=== PATIENT | male | born 1975 | race Caucasian/White ===

== ENCOUNTER 2017-04-26 22:51 | Inpatient (IN) | payer MEDICAID, OTHER ==
[~2017-04-26] VITALS: Ht 172.7 cm; Wt 74.7 kg
[~2017-04-26 22:51] MED LIST: BUSP15TA PO; CHLO10 PO; IBUP600T26 PO; LORTA5 PO; OXCA300 PO; PROP20TA3 PO; QUET100 PO; ROPI.5 PO
[2017-04-26 23:00] VITALS: BP 138/87; PULSE 99; RESP 16; TEMP 98.8; O2SAT 99
[2017-04-26] MEDS ORDERED: SUBO8MIS SL (23:22)
[2017-04-26] MEDS ORDERED: CLON0.1T PO (23:22)
[2017-04-27] MEDS ORDERED: CLINDAMYCIN INJ 600 MG in SODIUM CHLORIDE 0.9% INJ 100 ML IV ONE (00:30)
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
[2017-04-27] MEDS ORDERED: IOHEXOL 350 MG/ML 10 ML VIAL (for RAD DIAG) IV ONE (01:22)
[2017-04-27 01:30] VITALS: BP 130/70; PULSE 88; RESP 18; O2SAT 99
[2017-04-27 01:34] LABS: AUTOMATED NEUTROPHIL # 6.7 TH/MM3 (1.8-7.7); BASOPHIL # 0.1 TH/MM3 (0-0.2); EOSINOPHIL # 0.3 TH/MM3 (0-0.4); EOSINOPHIL % 2.4 % (0.0-4.0); HEMATOCRIT 41.7 % (39.0-51.0); HEMO FLAGS DIFF FINAL; LYMPHOCYTE # 3.6 TH/MM3 (1.0-4.8); MEAN CELL VOLUME 89.5 FL (80.0-100.0); MEAN CORPUSCULAR HGB CONC 35.7 % (32.0-36.0); MONO % 9.9 % (0.0-8.0); NEUT % 56.7 % (16.0-70.0); PLATELET COUNT 230 TH/MM3 (150-450); RED BLOOD COUNT 4.66 MIL/MM3 (4.50-5.90); RED CELL DISTRIBUTION WIDTH 13.4 % (11.6-17.2); WHITE BLOOD COUNT 11.9 TH/MM3 (4.0-11.0)
[2017-04-27 01:45] LABS: APTT (PATIENT) 41.9 SEC (24.3-30.1); PROTHROMBIN TIME - PATIENT 23.2 SEC (9.8-11.6)
[2017-04-27] MEDS ORDERED: KETOROLAC TROMETHAMINE 30 MG/ML (IVP) VIAL IV PUSH ONE (01:45)
[2017-04-27 01:47] LABS: POTASSIUM 3.2 MEQ/L (3.5-5.1)
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
--- NOTE | 2017-04-27 01:57 | RADRPT ---
EXAM DATE/TIME: 04/27/2017 01:19 [facility] COMPARISON: No previous studies available for comparison. INDICATIONS : Left neck mass, red and swollen IV CONTRAST: 72 cc Omnipaque 350 (iohexol) IV RADIATION DOSE: 13.29 CTDIvol (mGy) MEDICAL HISTORY : Hypertension. Cardiovascular disease SURGICAL HISTORY : None. ENCOUNTER: Initial ACUITY: 1 day PAIN SCALE: 8/10 LOCATION: Left neck TECHNIQUE: Volumetric scanning of the neck was performed. Using automated exposure control and adjustment of th e mA and/or kV according to patient size, radiation dose was kept as low as reasonably achievable to obtain optimal diagnostic quality images. DICOM format image data is available electronically for r eview and comparison. FINDINGS: There is some induration and swelling superficial to the left sternocleidomastoid muscle. There is a focal collection of gas is seen on image #73 and there is some focal low density material measuring up to 8 mm in thickness which may represent fluid or abscess. There is moderate thickening of the sk in adjacent to the abnormal area. Lateral compartment neck nodes measure up to 12 mm in diameter. The submandibular and parotid glands are normal in appearance. Prevertebral soft tissues are normal thickness. Homogeneous enhancement within the thyroid. Visualized upper lungs are clear. CONCLUSION: Findings suggest abscess adjacent to and superficial to the left sternocleidomastoid muscle. No drai nable fluid collections seen; the largest low density area measures 8 mm. Nicolás Cotton MD on April 27, 2017 at 1:53 Board Certified Radiologist. This report was verified electronically.
[2017-04-27] MEDS ORDERED: Vancomycin Consult Pharmacy 1 EA OTHER SCH (02:45)
[2017-04-27] MEDS ORDERED: NALOXONE HCL 0.4 MG/ML AMP IV PRN (02:45)
[2017-04-27] MEDS ORDERED: SODIUM CHLORIDE 0.9% FLUSH 10 ML FLUSH IV FLUSH PRN (02:45)
[2017-04-27] MEDS ORDERED: VANCOMYCIN 1,500 MG/NS 500 ML IV ONE ×2 (03:00)
[2017-04-27] MEDS: SODIUM CHLOR 0.9% 1000 ML INJ 1,000 ML IV SCH ×2 (03:24→17:10)
[2017-04-27] MEDS: PIPERACIL-TAZO 4.5 GM PREMIX 100 ML IV SCH ×4 (03:25→20:16)
[2017-04-27 04:00] VITALS: BP_SYST 114; BP_SYST 140; BP_DIAS 91; BP_DIAS 94; PULSE 76; PULSE 83; RESP 20; TEMP 96.3; TEMP 97.2; O2SAT 98
[2017-04-27 08:00] VITALS: BP 128/85; PULSE 83; RESP 18; TEMP 97; O2SAT 99
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
[2017-04-27] MEDS: SODIUM CHLORIDE 0.9% FLUSH 10 ML FLUSH IV FLUSH SCH ×2 (08:39→20:17)
[2017-04-27] MEDS ORDERED: POTASSIUM CHLORIDE 20 MEQ CONTROLLED RELEASE TAB PO ONE ×2 (09:00→11:00)
--- NOTE | 2017-04-27 09:18 | RADRPT ---
EXAM DATE/TIME: 04/27/2017 07:42 [facility] COMPARISON: CT SOFT TISSUE NECK W CONTRAST, April 27, 2017, 1:19. INDICATIONS : Thrombosis. MEDICAL HISTORY : Hypertension. Hypercholesterolemia. Kidney stones. SURGICAL HISTORY : Hand surgery. ENCOUNTER: Initial ACUITY: 1 day PAIN SCORE: 3/10 LOCATION: Left arm. FINDINGS: There is spontaneous flow documented in the brachial, basilic, cephalic, axillary, and subclavian vei ns. The vessels are compressible and augmentation response is documented. No filling defects are se en. The flow is phasic with respiration. Direction of flow in the jugular vein is caudal. CONCLUSION: 1. There is no evidence for DVT. 2. There is an echogenic shadowing focus in the left neck area of discomfort measuring 6.7 x 8.6 x 4. 6 mm. This corresponds to the small abscess in the left neck area of concern noted on recent CT. Jareth Yañez MD on April 27, 2017 at 9:13 Board Certified Radiologist. This report was verified electronically.
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
[2017-04-27] MEDS: MORPHINE SULFATE 4 MG/ML INJ IV PUSH PRN ×3 (10:19→20:26)
[2017-04-27 12:00] VITALS: BP 127/78; PULSE 71; RESP 19; TEMP 97.4; O2SAT 100
[2017-04-27 16:00] VITALS: BP 119/81; PULSE 66; RESP 18; TEMP 95.9; O2SAT 98
--- NOTE | 2017-04-27 17:03 | HHI.PR ---
Subjective Subjective Notes OR unable to do the case today. Booked at 1000 this am but OR not available to do until very late tonight. Case is number [phone] for add ons and they still have not finished elective schedule as of 5pm. Will put on for 07 tomorrow. Staff and patient notified. Objective Vitals/I&O Vital Signs Date Time Temp Pulse Resp B/P Pulse Ox O2 Delivery O2 Flow Rate FiO2 04/27/17 12:00 97.4 71 19 127/78 100 04/27/17 01:30 Room Air Labs Laboratory Tests Test 04/27/17 01:10 White Blood Count 11.9 Red Blood Count 4.66 Hemoglobin 14.9 Hematocrit 41.7 Mean Corpuscular Volume 89.5 Mean Corpuscular Hemoglobin 32.0 Mean Corpuscular Hemoglobin 35.7 Concent Red Cell Distribution Width 13.4 Platelet Count 230 Mean Platelet Volume 8.2 Neutrophils (%) (Auto) 56.7 Lymphocytes (%) (Auto) 30.0 Monocytes (%) (Auto) 9.9 Eosinophils (%) (Auto) 2.4 Basophils (%) (Auto) 1.0 Neutrophils # (Auto) 6.7 Lymphocytes # (Auto) 3.6 Monocytes # (Auto) 1.2 Eosinophils # (Auto) 0.3 Basophils # (Auto) 0.1 CBC Comment DIFF FINAL Differential Comment Prothrombin Time 23.2 Prothromb Time International 2.0 Ratio Activated Partial 41.9 Thromboplast Time Sodium Level 139 Potassium Level 3.2 Chloride Level 102 Carbon Dioxide Level 27.0 Anion Gap 10 Blood Urea Nitrogen 6 Creatinine 0.82 Estimat Glomerular Filtration 103 Rate Random Glucose 100 Lactic Acid Level 1.3 Calcium Level 9.0 Date/Time Procedure Status Source Growth 04/27/17 01:47 Aerobic Blood Culture Received Blood Peripheral Pending 04/27/17 01:47 Anaerobic Blood Culture Received Blood Peripheral Pending Radiology Last 48 hours Impressions Upper Extremity Ultrasound 04/27/17 0418 Signed Impressions: Service Date/Time: Thursday, April 27, 2017 07:42 - CONCLUSION: 1. There is no evidence for DVT. 2. There is an echogenic shadowing focus in the left neck area of discomfort measuring 6.7 x 8.6 x 4.6 mm. This corresponds to the small abscess in the left neck area of concern noted on recent CT. Jareth Yañez MD Neck CT 04/27/17 0000 Signed Impressions: Service Date/Time: Thursday, April 27, 2017 01:19 - CONCLUSION: Findings suggest abscess adjacent to and superficial to the left sternocleidomastoid muscle. No drainable fluid collections seen; the largest low density area measures 8 mm. MD Charisma Sim Mark W. MD Apr 27, 2017 17:03
[2017-04-27] MEDS: VANCOMYCIN INJ 1,250 MG in SODIUM CHLOR 0.9% 250 ML INJ 250 ML IV SCH (17:09)
[2017-04-27] MEDS ORDERED: LACTATED RINGER'S 1000 ML IV PRN (19:00)
[2017-04-27] MEDS ORDERED: INSULIN HUMAN REGULAR 1,000 UNITS/10 ML VIAL SQ PRN (19:00)
[2017-04-27] MEDS ORDERED: POVIDONE IODINE 5% (ANTISEPSIS KIT) 4 APPLICATIONS EACH NARE PRN (19:00)
[2017-04-27] MEDS ORDERED: METOPROLOL TARTRATE 25 MG TAB PO PRN (19:00)
[2017-04-27] MEDS ORDERED: SODIUM CHLORID 0.9% 500 ML IV PRN (19:00)
[2017-04-27] MEDS ORDERED: CHLORHEXIDINE GLUCONATE 2 % 1 PACK (2 CLOTHS) TOPICAL PRN (19:00)
[2017-04-27 20:00] VITALS: BP 130/88; PULSE 72; RESP 18; TEMP 97.7; O2SAT 98
[2017-04-28] VITALS (8 sets, daily range): BP systolic 119–144; BP diastolic 72–89; PULSE 59–81; RESP 18–20; TEMP 95.7–98.4; O2SAT 97–99
[2017-04-28] MEDS: MORPHINE SULFATE 4 MG/ML INJ IV PUSH PRN ×2 (01:00→21:09)
[2017-04-28] MEDS: PIPERACIL-TAZO 4.5 GM PREMIX 100 ML IV SCH ×4 (02:34→21:09)
[2017-04-28] MEDS: VANCOMYCIN INJ 1,250 MG in SODIUM CHLOR 0.9% 250 ML INJ 250 ML IV SCH ×2 (05:11→17:55)
[2017-04-28] MEDS ORDERED: LIDOCAINE HCL 1% 50 ML VIAL ONE (07:15)
[2017-04-28] MEDS ORDERED: KETAMINE HCL 500 MG/5 ML VIAL ONE (07:29)
[2017-04-28] MEDS ORDERED: DEXAMETHASONE SOD PHOS 4 MG/ML VIAL ONE (07:30)
[2017-04-28] MEDS ORDERED: FAMOTIDINE 20 MG/2 ML VIAL ONE (07:30)
[2017-04-28] MEDS ORDERED: BUPIVACAINE/EPINEPHRINE 0.25% PF 10 ML VIAL INFIL ONE (07:59)
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
[2017-04-28] MEDS: SODIUM CHLOR 0.9% 1000 ML INJ 1,000 ML IV SCH ×3 (08:38→18:38)
[2017-04-28] MEDS ORDERED: MIDAZOLAM HCL 2 MG/2 ML VIAL ONE (08:40)
[2017-04-28] MEDS ORDERED: KETOROLAC TROMETHAMINE 30 MG/ML (IVP) VIAL ONE (09:13)
[2017-04-28] MEDS ORDERED: ACETAMINOPHEN 1000 MG/100 ML VIAL IV ONE (09:13)
[2017-04-28] MEDS: SODIUM CHLORIDE 0.9% FLUSH 10 ML FLUSH IV FLUSH SCH ×2 (09:56→21:09)
[2017-04-28] MEDS ORDERED: DO NOT ADM ANY ANTICOAGULANT DRUGS PRN (10:15)
[2017-04-28 10:25] LABS: AUTOMATED NEUTROPHIL # 6.3 TH/MM3 (1.8-7.7); BASOPHIL % 0.3 % (0.0-2.0); EOSINOPHIL # 0.2 TH/MM3 (0-0.4); EOSINOPHIL % 2.5 % (0.0-4.0); HEMO FLAGS DIFF FINAL; LYMPH % 18.3 % (9.0-44.0); LYMPHOCYTE # 1.5 TH/MM3 (1.0-4.8); MEAN CELL VOLUME 91.4 FL (80.0-100.0); MEAN CORPUSCULAR HGB CONC 33.9 % (32.0-36.0); NEUT % 75.9 % (16.0-70.0); PLATELET COUNT 229 TH/MM3 (150-450); RED BLOOD COUNT 4.37 MIL/MM3 (4.50-5.90); RED CELL DISTRIBUTION WIDTH 13.8 % (11.6-17.2); WHITE BLOOD COUNT 8.2 TH/MM3 (4.0-11.0)
[2017-04-28 11:13] LABS: BICARBONATE 25.2 MEQ/L (21.0-32.0); MAGNESIUM 2.1 MG/DL (1.5-2.5); POTASSIUM 5.1 MEQ/L (3.5-5.1)
[2017-04-28] MEDS ORDERED: PROPOFOL 200 MG/20 ML AMP IV ONE (12:00)
[2017-04-28] MEDS ORDERED: ONDANSETRON HCL 4 MG/2 ML VIAL IV PUSH ONE (12:00)
[2017-04-29] VITALS (9 sets, daily range): BP systolic 121–149; BP diastolic 70–96; PULSE 68–88; RESP 16–20; TEMP 97–97.8; O2SAT 97–100
[2017-04-29] MEDS: PIPERACIL-TAZO 4.5 GM PREMIX 100 ML IV SCH ×4 (01:57→20:51)
[2017-04-29] MEDS: MORPHINE SULFATE 4 MG/ML INJ IV PUSH PRN ×2 (01:58→07:49)
[2017-04-29] MEDS: SODIUM CHLOR 0.9% 1000 ML INJ 1,000 ML IV SCH (05:11)
[2017-04-29] MEDS ORDERED: PHARMACY ORDERED LAB ONE (05:45)
[2017-04-29] MEDS: VANCOMYCIN INJ 1,250 MG in SODIUM CHLOR 0.9% 250 ML INJ 250 ML IV SCH (07:12)
[2017-04-29 07:39] LABS: VANCOMYCIN TROUGH 8.1 MCG/ML (5.0-10.0)
[2017-04-29] MEDS: SODIUM CHLORIDE 0.9% FLUSH 10 ML FLUSH IV FLUSH SCH ×2 (09:00→20:51)
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
[2017-04-29] MEDS ORDERED: ACETAMINOPHEN/HYDROcodone 325 MG/5 MG TAB PO PRN (11:15)
[2017-04-29] MEDS ORDERED: ACETAMINOPHEN 325 MG TAB PO PRN (11:15)
--- NOTE | 2017-04-29 11:54 | HHI.PR ---
Subjective Subjective Notes Feeling much better; pain controlled Was also seen by Dr. Zafar's [employer] [place] Objective Vitals/I&O Vital Signs Date Time Temp Pulse Resp B/P Pulse Ox O2 Delivery O2 Flow Rate FiO2 04/29/17 09:48 100 Nasal Cannula 2.00 04/29/17 08:45 97.8 68 20 136/96 Labs Laboratory Tests Test 04/29/17 06:30 Creatinine 0.78 Estimat Glomerular Filtration 109 Rate Vancomycin Level Trough 8.1 Date/Time Procedure Status Source Growth 04/28/17 08:03 Gram Stain - Final Resulted Wound Neck 04/28/17 08:03 Wound Culture Resulted Wound Neck Pending 04/28/17 08:03 Fungal Smear - Final Resulted Wound Neck NO FUNGAL ELEMENTS SEEN. 04/28/17 08:03 Fungal Culture Resulted Wound Neck Pending 04/28/17 08:03 Acid Fast Stain - Final Resulted Wound Neck NO ACID FAST BACILLI SEEN 04/28/17 08:03 Mycobacterial Culture Resulted Wound Neck Pending 04/27/17 01:47 Aerobic Blood Culture - Preliminary Resulted Blood Peripheral NO GROWTH IN 2 DAYS 04/27/17 01:47 Anaerobic Blood Culture - Preliminary Resulted Blood Peripheral NO GROWTH IN 2 DAYS Radiology Last 48 hours Impressions Upper Extremity Ultrasound 04/27/17 0418 Signed Impressions: Service Date/Time: Thursday, April 27, 2017 07:42 - CONCLUSION: 1. There is no evidence for DVT. 2. There is an echogenic shadowing focus in the left neck area of discomfort measuring 6.7 x 8.6 x 4.6 mm. This corresponds to the small abscess in the left neck area of concern noted on recent CT. Jareth Yañez MD Neck CT 04/27/17 0000 Signed Impressions: Service Date/Time: Thursday, April 27, 2017 01:19 - CONCLUSION: Findings suggest abscess adjacent to and superficial to the left sternocleidomastoid muscle. No drainable fluid collections seen; the largest low density area measures 8 mm. Nicolás Cotton MD Cardiovascular: Regular Lungs: Clear Abdomen: Non-distended, Non-tender Extremities: No edema Narrative Exam LEFT neck---drain in place with minimal drainage on gauze; redness decreased A/P Assessment and Plan 41 year old male with LEFT neck abscess -POD1 I&D and drain placement of LEFT neck abscess -Antibiotics and pain meds per primary -Routine drain care -Plan for follow up visit in office on Wednesday for drain removal on Wednesday Shanelle Garcia Apr 29, 2017 11:54
[2017-04-29] MEDS: MORPHINE SULFATE 4 MG/ML INJ IV PRN ×2 (12:47→17:16)
[2017-04-29] MEDS: VANCOMYCIN INJ 1,500 MG in SODIUM CHLORID 0.9% 500 ML INJ 500 ML IV SCH (17:20)
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
[2017-04-29] MEDS: ACETAMINOPHEN/HYDROcodone 325 MG/7.5 MG TAB PO PRN (20:51)
[2017-04-30] VITALS (7 sets, daily range): BP systolic 96–155; BP diastolic 81–97; PULSE 63–88; RESP 18–20; TEMP 96.2–98.3; O2SAT 94–99
[2017-04-30] MEDS: PIPERACIL-TAZO 4.5 GM PREMIX 100 ML IV SCH ×3 (03:03→14:38)
[2017-04-30] MEDS: VANCOMYCIN INJ 1,500 MG in SODIUM CHLORID 0.9% 500 ML INJ 500 ML IV SCH ×2 (05:26→18:00)
[2017-04-30] MEDS: ACETAMINOPHEN/HYDROcodone 325 MG/7.5 MG TAB PO PRN ×3 (08:09→20:19)
[2017-04-30] MEDS: SODIUM CHLORIDE 0.9% FLUSH 10 ML FLUSH IV FLUSH SCH ×2 (08:10→20:21)
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
--- NOTE | 2017-04-30 12:19 | HHI.PR ---
Subjective Subjective Notes feeling better, reports little drainage from wound, no fever Objective Vitals/I&O Vital Signs Date Time Temp Pulse Resp B/P Pulse Ox O2 Delivery O2 Flow Rate FiO2 04/30/17 08:09 96.8 63 20 96/ 98 04/29/17 22:09 21 04/29/17 09:48 Nasal Cannula 2.00 Labs Date/Time Procedure Status Source Growth 04/28/17 08:03 Gram Stain - Final Complete Wound Neck 04/28/17 08:03 Wound Culture - Final Complete Bacillus Species Not Anthracis Pleomorphic Gram Positive Rods 04/28/17 08:03 Fungal Smear - Final Resulted Wound Neck NO FUNGAL ELEMENTS SEEN. 04/28/17 08:03 Fungal Culture Resulted Wound Neck Pending 04/28/17 08:03 Acid Fast Stain - Final Resulted Wound Neck NO ACID FAST BACILLI SEEN 04/28/17 08:03 Mycobacterial Culture Resulted Wound Neck Pending 04/27/17 01:47 Aerobic Blood Culture - Preliminary Resulted Blood Peripheral NO GROWTH IN 3 DAYS 04/27/17 01:47 Anaerobic Blood Culture - Preliminary Resulted Blood Peripheral NO GROWTH IN 3 DAYS 04/27/17 01:30 Aerobic Blood Culture - Final Resulted Blood Peripheral Staph. Cohnii-Urealyticum 04/27/17 01:30 Anaerobic Blood Culture - Preliminary Resulted Blood Peripheral NO GROWTH IN 3 DAYS Radiology Last 48 hours Impressions Upper Extremity Ultrasound 04/27/17 0418 Signed Impressions: Service Date/Time: Thursday, April 27, 2017 07:42 - CONCLUSION: 1. There is no evidence for DVT. 2. There is an echogenic shadowing focus in the left neck area of discomfort measuring 6.7 x 8.6 x 4.6 mm. This corresponds to the small abscess in the left neck area of concern noted on recent CT. Jareth Yañez MD Neck CT 04/27/17 0000 Signed Impressions: Service Date/Time: Thursday, April 27, 2017 01:19 - CONCLUSION: Findings suggest abscess adjacent to and superficial to the left sternocleidomastoid muscle. No drainable fluid collections seen; the largest low density area measures 8 mm. Nicolás Cotton MD Wound Wound : Wound Location: Neck Appearance: Clean & Dry Drainage: Clear A/P Assessment and Plan s/p ID neck abscess will remove elsa today, dry dressing prn, ok to shower can FU in office next week for wound check and suture removal [phone] Doc Zafar MD Apr 30, 2017 12:19
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
[2017-04-30] MEDS ORDERED: CLIN1CAP6 PO (16:37)
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
[2017-04-30] MEDS ORDERED: diphenhydrAMINE HCL 25 MG CAP PO ONE (18:30)
[2017-04-30] MEDS ORDERED: diphenhydrAMINE HCL 25 MG CAP PO PRN (18:30)
[2017-04-30] MEDS ORDERED: methylPREDNISolone SOD SUCC 125 MG/2 ML VIAL IV PUSH STA (18:33)
[2017-05-01] MEDS: CLINDAMYCIN 150 MG CAP PO SCH ×2 (00:19→06:08)
[2017-05-01] MEDS: ACETAMINOPHEN/HYDROcodone 325 MG/7.5 MG TAB PO PRN (01:56)
[2017-05-01 03:14] VITALS: BP 138/84; PULSE 89; RESP 18; TEMP 97.8; O2SAT 96
[2017-05-01 05:30] VITALS: BP 118/79; PULSE 79; RESP 18; TEMP 97.3; O2SAT 96
[2017-05-01] MEDS ORDERED: PHARMACY ORDERED LAB ONE (05:45)
[2017-05-01 08:00] VITALS: BP 155/86; PULSE 74; RESP 18; TEMP 96.9; O2SAT 95
== END 2017-05-01 12:01 | disposition home or self-care (01) | DRG 603 ==
LOC: NEPE 22:51 → NEDA 04-27 03:48 → N05B 04-27 05:18
PROVIDERS: ADMIT Hospitalist; ATTEND Hospitalist
PROC: 0J9400Z Drainage of Right Neck Subcutaneous Tissue and Fascia with Drainage Device, Open Approach (ICD-10-PCS; principal; 2017-04-28 07:36)
DX: L02.11 Cutaneous abscess of neck (principal); R78.81 Bacteremia; I10 Essential (primary) hypertension; E78.5 Hyperlipidemia, unspecified; L03.221 Cellulitis of neck; F17.210 Nicotine dependence, cigarettes, uncomplicated; F15.10 Other stimulant abuse, uncomplicated; R21 Rash and other nonspecific skin eruption; F32.9 Major depressive disorder, single episode, unspecified; Z87.820 Personal history of traumatic brain injury
CPT/HCPCS: 70491; 80048; 80202; 82565; 83605; 83735; 85025; 85610; 85730; 87015; 87040; 87070; 87102; 87116; 87149; 87186; 87205; 87206; 93971; 96365; 96375; J0131; J1100; J1885; J2250; J2270; J2405; J2543; J2930; J3370; J7030; J7040; J7050; J7120; Q9967

== ENCOUNTER 2018-11-05 15:32 | Inpatient (IN) ==
[2018-11-05] MEDS ORDERED: Sod Chloride 0.9% Inj 1,000 ML IV.SIG ONE (16:29)
[2018-11-05] MEDS ORDERED: Vancomycin Inj 1,000 MG in Sodium Chlor 0.9% Inj 250 ML IV.SIG ONE (16:29)
[2018-11-05] MEDS ORDERED: Piperacil/Tazo 4.5 GM Premix 4.5 GM/100 ML BAG IV.SIG SCH (16:30)
--- NOTE | 2018-11-05 16:45 | ED ---
HPI General Chief complaint: Extremity Injury, Upper Stated complaint: rt hand infection Time Seen by Provider: 11/05/18 16:21 Source: patient, RN notes reviewed and old records reviewed Mode of arrival: ambulatory History of Present Illness HPI narrative: 43yM presenting with right hand infection. The patient states that 2 days ago he began to notice swelling and pain to the dorsum of his right hand which has since gotten worse and is now spreading up his right arm. Denies puncture wounds, bites, or trauma but admits to tactile fevers and chills. He denies history of diabetes, recurrent skin infections, or MRSA infections. He admits to previous IVDA but says that he's been in recovery for 5 months. Patient is right-hand dominant, no occupation. History of hepatitis C, not currently on treatment. Related Data Allergies Allergy/AdvReac Type Severity Reaction Status Date / Time No Known Allergies Allergy Verified 11/05/18 15:56 Review of Systems ROS: all other systems reviewed are negative FOR[facility] Surgical History Surgical History History of amputation of right thumb (Acute) History of esophageal surgery (Acute) Social History Social History Smoking Status: Current every day smoker Tobacco Type: Cigarettes How Often Do You Have a Drink Containing Alcohol: Never Recent Travel in [facility] within the Last 8 Weeks: No Recent Out of Country Travel within the Last 8 Weeks: No Immunization History Tetanus Immunization: Unsure Exam Const General: healthy appearing and no acute distress HENMT Face and sinus: normal facial exam Eyes General: appearance normal, both eyes and all related structures Resp Effort & Inspection: normal respiratory effort Auscultation: no rhonchi and no wheezes Cardio Rate: regular rate Rhythm: regular rhythm GI Inspection: non-distended Palpation: soft and nontender Skin Other: Swelling, erythema, warmth, and tenderness to entire dorsum of right hand with lymphangitic streaking past the wrist, no crepitus, no fluctuance, worsening pain on passive extension of 2nd-5th digits. Sensation intact to all digits, strong radial pulse, normal capillary refill. Neuro General: alert and awake Psych Affect: normal affect Course Initial Documented Vital Signs Temperature 98.1 F 11/05/18 15:53 Pulse Rate 99 H 11/05/18 15:53 Respiratory Rate 16 11/05/18 15:53 Blood Pressure 162/93 H 11/05/18 15:53 Pulse Oximetry 97 11/05/18 15:53 Last Documented Vital Signs Temperature 98.1 F 11/05/18 15:53 Pulse Rate 99 H 11/05/18 15:53 Respiratory Rate 16 11/05/18 15:53 Blood Pressure 162/93 H 11/05/18 15:53 Pulse Oximetry 97 11/05/18 15:53 Medical Decision Making [facility] Narrative Medical decision making narrative: Assessment: 43yM presenting with cellulitis of right hand and pain on passive extension of digits Plan: NPO Labs, including cultures IV fluids IV antibiotics Case discussed with Dr. Noble (hand surgery), who will see the patient and requests X-ray and US of right hand. Patient will need medical admission for continued IV antibiotics. Case also discussed with Dr. Christos Lopes of [facility]. Medical Screen Exam Complete: Yes Emergency Medical Condition: Yes Differential Diagnosis Differential Diagnosis: Differential diagnosis includes, but is not limited to: cellulitis, abscess, tenosynovitis, bacteremia Lab Data Result diagrams: 11/05/18 16:40 11/05/18 16:40 Lab Results 11/05/18 11/05/18 11/05/18 Range/Units 16:40 16:40 16:40 WBC 8.0 (4.0-11.0) th/mm3 RBC 5.02 (4.50-5.90) mil/mm3 Hgb 15.9 (13.0-17.0) gm/dL Hct 44.4 (39.0-51.0) % MCV 88.4 (80.0-100.0) fL MCH 31.7 (27.0-34.0) pg MCHC 35.9 (32.0-36.0) % RDW 13.4 (11.6-17.2) % Plt Count 245 (150-450) th/mm3 MPV 8.0 (7.0-11.0) fL Neut % (Auto) 61.7 (16.0-70.0) % Lymph % (Auto) 25.4 (9.0-44.0) % [place] % (Auto) 10.6 H (0.0-8.0) % Eos % (Auto) 1.9 (0.0-4.0) % Baso % (Auto) 0.4 (0.0-2.0) % Neut # (Auto) 5.0 (1.8-7.7) th/mm3 Lymph # (Auto) 2.0 (1.0-4.8) th/mm3 [place] # (Auto) 0.9 (0.0-0.9) th/mm3 Eos # (Auto) 0.2 (0.0-0.4) th/mm3 Baso # (Auto) 0.0 (0.0-0.2) th/mm3 WBC Differential . Differential Comment Auto diff final Lactic Acid 1.7 (0.4-2.0) mmol/L Total Bilirubin 0.8 (0.2-1.0) mg/dL ALT 516 H (12-78) U/L Alkaline Phosphatase 111 (45-117) U/L Total Protein 8.1 (6.4-8.2) g/dL Imaging Data Radiologist's impression: Hand X-Ray 11/05/18 16:36 CONCLUSION: Chronic changes and no definite fracture for technique. Upper Extremity Ultrasound 11/05/18 16:36 CONCLUSION: 1. Uterus subcutaneous swelling without focal pocket of abscess. Discharge Plan Discharge Disposition Patient Disposition: ED Admit(ED Internal Use Only) Discharge Condition Condition: Stable Discharge Order Discharge Orders: ED Use Only Admit Order (Routine); Ordered 11/05/18 Ordered By: Johanne Oconnell Discharge Details Diagnosis: Cellulitis of hand, right Physicians Team ED Provider: Johanne Oconnell Primary Care Provider: UNKNOWN, Attending Provider: Christos Lopes Other Providers: Dano Noble Discharge Interventions Interventions: Vital Signs Last Done: 11/05/18 15:53 Status ED Status: Admitted Observation Patient
[2018-11-05 16:52] LABS: Baso % (Auto) 0.4 % (0.0-2.0); Eos # (Auto) 0.2 th/mm3 (0.0-0.4); Eos % (Auto) 1.9 % (0.0-4.0); Hematocrit 44.4 % (39.0-51.0); Hemoglobin 15.9 gm/dL (13.0-17.0); Lymph % (Auto) 25.4 % (9.0-44.0); Mean Corpuscular HGB Conc 35.9 % (32.0-36.0); Mean Corpuscular Hemoglobin 31.7 pg (27.0-34.0); Mean Corpuscular Volume 88.4 fL (80.0-100.0); Mono # (Auto) 0.9 th/mm3 (0.0-0.9); Mono % (Auto) 10.6 % (0.0-8.0); Neut % (Auto) 61.7 % (16.0-70.0); Platelet Count 245 th/mm3 (150-450); Red Blood Count 5.02 mil/mm3 (4.50-5.90); Red Cell Distribution Width 13.4 % (11.6-17.2)
--- NOTE | 2018-11-05 17:00 | XR ---
EXAM DATE: 11/05/2018 4:55 PM EST AGE/SEX: 43 years / Male INDICATIONS: Right hand inflammation. CLINICAL DATA: This is the patient's initial encounter. Patient reports that signs and symptoms have been present for 3 days and indicates a pain score of 5/10. MEDICAL/SURGICAL HISTORY: None. None. [place] [facility] [place][id number] 08/25/2013. . FINDINGS: No definite fractures, or dislocations are identified. No definite lytic or sclerotic les ion is seen. There is amputation of the first digit at the level of the interphalangeal joint and the re is a small spur and osteophyte formations involving the fourth and fifth distal phalanges may be d ue to old healed fractures. CONCLUSION: Chronic changes and no definite fracture for technique. Electronically signed by: Tarik Moss MD Board Certified Radiologist 11/05/2018 4:59 PM EST
--- NOTE | 2018-11-05 17:16 | US ---
EXAM DATE: 11/05/2018 5:14 PM EST AGE/SEX: 43 years / Male INDICATIONS: Abscess. CLINICAL DATA: This is the patient's initial encounter. Patient reports that signs and symptoms have been present for 4 - 6 days and indicates a pain score of 5/10. MEDICAL/SURGICAL HISTORY: . Right hand swelling. . Right thumb amputation. Esophageal surgery. COMPARISON: No prior exams available for comparison. FINDINGS: Examination of the patient's demonstrate subcutaneous swelling without focal pocket of abscess or flu id collections. CONCLUSION: 1. Uterus subcutaneous swelling without focal pocket of abscess. Electronically signed by: Tarik Moss MD Board Certified Radiologist 11/05/2018 5:15 PM EST
[2018-11-05 17:21] LABS: Alanine Aminotransferase 516 U/L (12-78); Alkaline Phosphatase 111 U/L (45-117); Total Protein 8.1 g/dL (6.4-8.2)
[2018-11-05 17:27] LABS: Albumin 4.3 g/dL (3.4-5.0); Anion Gap 5 meq/L (5-15); Aspartate Aminotransferase 284 U/L (15-37); Blood Urea Nitrogen 19 mg/dL (7-18); Calcium 8.6 mg/dL (8.5-10.1); Carbon Dioxide 28.9 meq/L (21.0-32.0); Chloride 105 meq/L (98-107); Glomerular Filtration Rate Greater Than 89 mL/min (>89); Glucose,Random 94 mg/dL (74-106); Potassium 4.3 meq/L (3.5-5.1); Sodium 139 meq/L (136-145)
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
[2018-11-05] MEDS: Ibuprofen 600 MG Tablet PO PRN (20:18)
[2018-11-06] MEDS ORDERED: Piperacil/Tazo 3.375 GM Premix 3.375 GM/50 ML PIGGYBACK IV.SIG SCH (02:54)
[2018-11-06 04:59] LABS: Baso % (Auto) 0.6 % (0.0-2.0); Eos # (Auto) 0.3 th/mm3 (0.0-0.4); Eos % (Auto) 4.7 % (0.0-4.0); Hematocrit 40.9 % (39.0-51.0); Hemoglobin 14.2 gm/dL (13.0-17.0); Lymph # (Auto) 2.3 th/mm3 (1.0-4.8); Lymph % (Auto) 39.1 % (9.0-44.0); Mean Corpuscular HGB Conc 34.8 % (32.0-36.0); Mean Corpuscular Hemoglobin 31.1 pg (27.0-34.0); Mean Corpuscular Volume 89.5 fL (80.0-100.0); Mean Platelet Volume 8.1 fL (7.0-11.0); Mono # (Auto) 0.6 th/mm3 (0.0-0.9); Mono % (Auto) 10.8 % (0.0-8.0); Neut # (Auto) 2.6 th/mm3 (1.8-7.7); Neut % (Auto) 44.8 % (16.0-70.0); Platelet Count 189 th/mm3 (150-450); Red Blood Count 4.57 mil/mm3 (4.50-5.90); Red Cell Distribution Width 13.3 % (11.6-17.2); White Blood Count 5.8 th/mm3 (4.0-11.0)
[2018-11-06 05:20] LABS: Anion Gap 6 meq/L (5-15); Blood Urea Nitrogen 14 mg/dL (7-18); Calcium 7.9 mg/dL (8.5-10.1); Carbon Dioxide 26.9 meq/L (21.0-32.0); Chloride 108 meq/L (98-107); Glomerular Filtration Rate Greater Than 89 mL/min (>89); Glucose,Random 94 mg/dL (74-106); Potassium 3.9 meq/L (3.5-5.1); Sodium 141 meq/L (136-145)
[2018-11-06] MEDS: Vancomycin Inj 1,000 MG in Sodium Chlor 0.9% Inj 250 ML IV.SIG SCH (08:56)
--- NOTE | 2018-11-06 10:17 | P.PNIM ---
Subjective Interval history: Patient's pain was controlled overnight, overall he has more motion in the hand, complains of some spreading onto the wrist there is less redness and swelling. Physical Exam Vital signs: Last Vital Signs Temp 98.3 F 11/06/18 07:27 Pulse 70 11/06/18 07:27 Resp 18 11/06/18 07:27 BP 104/66 11/06/18 07:27 Pulse Ox 99 11/06/18 07:27 Intake & Output 11/04/18 11/05/18 11/06/18 11/07/18 06:59 06:59 06:59 06:59 Intake Total 1400 / 1400 250 / 250 Output Total 300 / 300 Balance 1100 / 1100 250 / 250 Weight 79 kg Narrative: GENERAL: AAOx3, no acute distress SKIN: Warm and dry. Reduce redness and swelling of her right dorsal hand, some extension onto the wrist, but overall improving HEAD: Atruamtic, normocephalic. EYES: No scleral icterus. No injection or drainage. ENT: Moist mucous membranes, patent nares, no erythema of oropharynx. NECK: Supple, trachea midline. No JVD or lymphadenopathy. Normal thyroid. CARDIOVASCULAR: Regular rate and rhythm. No murmurs, gallops, or rubs. RESPIRATORY: Breath sounds clear equal bilaterally. No crackles or wheezes. No accessory muscle use. GASTROINTESTINAL: Abdomen soft, non-tender, nondistended, normal active bowel sounds MUSCULOSKELETAL: No cyanosis, or edema. NEURO: CN II-XII grossly intact, no focal deficits, no slurring of speech Results Labs CBC & Chem 7: 11/06/18 04:41 11/06/18 04:41 Imaging Imaging: Impressions Hand X-Ray 11/05/18 16:36 CONCLUSION: Chronic changes and no definite fracture for technique. Upper Extremity Ultrasound 11/05/18 16:36 CONCLUSION: 1. Uterus subcutaneous swelling without focal pocket of abscess. Assessment and Plan Plan Cellulitis of right hand Most likely source is a hangnail on his right fourth finger cuticle He also had a tattoo at home on his right wrist 3 weeks ago Patient has a past history of IV drug use, clean for 5 months, not likely related Plain film of the hand shows no evidence of osteomyelitis Doppler study of hand shows no evidence of DVT Continue with IV vancomycin and IV Zosyn Ibuprofen 600 mg 3 times daily as needed for pain Hand surgeon evaluated him last night, reevaluating today Appreciate hand surgery consult DVT prophylaxis SCDs Disposition Patient is improving, but does not appear quite ready for transition to oral antibiotics Progress Note: Quality VTE Deep Vein Thrombosis/Pulmonary Embolism Present on Admission: No
[2018-11-06] MEDS: Piperacil/Tazo 3.375 GM Premix 3.375 GM/50 ML PIGGYBACK IV.SIG SCH ×2 (11:13→18:42)
--- NOTE | 2018-11-06 11:25 | P.PN ---
Subjective Interval history: complains of pain, getting better decreased redness increased swelling no fever Physical Exam Vital signs: Vital Signs 11/05/18 15:53 11/05/18 17:30 11/05/18 18:00 Temperature 98.1 F Pulse Rate 99 H 80 88 Respiratory Rate 16 19 Blood Pressure 162/93 H 125/74 136/92 H Pulse Oximetry 97 100 11/05/18 19:53 11/05/18 23:50 11/06/18 04:17 Temperature 98.5 F 97.7 F 97.8 F Pulse Rate 90 90 62 Respiratory Rate 16 18 18 Blood Pressure 125/82 106/68 104/68 Pulse Oximetry 100 98 96 11/06/18 07:27 11/06/18 11:00 Temperature 98.3 F 97.4 F L Pulse Rate 70 75 Respiratory Rate 18 18 Blood Pressure 104/66 111/76 Pulse Oximetry 99 98 Intake & Output 11/05/18 11/06/18 11/06/18 18:59 06:59 18:59 Intake Total 1350 / 1350 50 / 50 250 / 250 Output Total 300 / 300 Balance 1350 / 1350 -250 / -250 250 / 250 Weight 79.379 kg 79 kg Intake: IV 1350 / 1350 50 / 50 250 / 250 Zosyn 3.375 GM Premix 3.375 gm 50 / 50 In 50 ml @ 100 mls/hr IV.SIG Q8H TIM Rx#:[id number] Zosyn 4.5 GM Premix 4.5 gm In 100 / 100 100 ml @ 200 mls/hr IV.SIG ONCE TIM Rx#:[id number] NS Inj 1,000 ML @ Wide Open IV. 1000 / 1000 SIG BOLUS ONE Rx#:[id number] Vancomycin Inj 1,000 MG In NS 250 / 250 250 / 250 Inj 250 ML @ 250 mls/hr IV.SIG Q24H TIM Rx#:[id number] Output: Urine 300 / 300 Other: # Voids 1 Date of Last Bowel Movement 11/05/18 Weight On Admission 79.379 kg Narrative: right hand and wrist: decreased redness decreased swelling over the dorsum but has extended proximal to the extensor retinaculum able to make a better fist terminal degrees of extension fingers painful intact sensation distally wbc count normal Results - Labs CBC & Chem 7: 11/06/18 04:41 11/06/18 04:41 Laboratory Results - last 24 hr 11/05/18 11/05/18 11/05/18 16:40 16:40 16:40 WBC 8.0 RBC 5.02 Hgb 15.9 Hct 44.4 MCV 88.4 MCH 31.7 MCHC 35.9 RDW 13.4 Plt Count 245 MPV 8.0 Neut % (Auto) 61.7 Lymph % (Auto) 25.4 Ness % (Auto) 10.6 H Eos % (Auto) 1.9 Baso % (Auto) 0.4 Neut # (Auto) 5.0 Lymph # (Auto) 2.0 Ness # (Auto) 0.9 Eos # (Auto) 0.2 Baso # (Auto) 0.0 WBC Differential . Differential Comment Auto diff final Sodium 139 Potassium 4.3 Chloride 105 Carbon Dioxide 28.9 Anion Gap 5 BUN 19 H Creatinine 0.85 Estimated GFR Greater than 89 Random Glucose 94 Lactic Acid 1.7 Calcium 8.6 Total Bilirubin 0.8 AST 284 H ALT 516 H Alkaline Phosphatase 111 Total Protein 8.1 Albumin 4.3 11/06/18 11/06/18 04:41 04:41 WBC 5.8 RBC 4.57 Hgb 14.2 Hct 40.9 MCV 89.5 MCH 31.1 MCHC 34.8 RDW 13.3 Plt Count 189 MPV 8.1 Neut % (Auto) 44.8 Lymph % (Auto) 39.1 Ness % (Auto) 10.8 H Eos % (Auto) 4.7 H Baso % (Auto) 0.6 Neut # (Auto) 2.6 Lymph # (Auto) 2.3 Ness # (Auto) 0.6 Eos # (Auto) 0.3 Baso # (Auto) 0.0 WBC Differential . Differential Comment Auto diff final Sodium 141 Potassium 3.9 Chloride 108 H Carbon Dioxide 26.9 Anion Gap 6 BUN 14 Creatinine 0.79 Estimated GFR Greater than 89 Random Glucose 94 Lactic Acid Calcium 7.9 L Total Bilirubin AST ALT Alkaline Phosphatase Total Protein Albumin Microbiology 11/05/18 16:40 Blood - Peripheral Aerobic Blood Culture - Preliminary No growth in 1 day 11/05/18 16:40 Blood - Peripheral Anaerobic Blood Culture - Preliminary No growth in 1 day 11/05/18 16:35 Blood - Peripheral Aerobic Blood Culture - Preliminary No growth in 1 day 11/05/18 16:35 Blood - Peripheral Anaerobic Blood Culture - Preliminary No growth in 1 day - Imaging Impressions Hand X-Ray 11/05/18 16:36 CONCLUSION: Chronic changes and no definite fracture for technique. Upper Extremity Ultrasound 11/05/18 16:36 CONCLUSION: 1. Uterus subcutaneous swelling without focal pocket of abscess. Assessment and Plan - Assessment (1) Extensor tenosynovitis of right wrist Code(s): M65.841 - Other synovitis and tenosynovitis, right hand Status: Acute - Plan symptoms have improved compared to yesterday continue with limb elevation and finger range of motion exercises can have regular diet continue with IV antibiotics hand surgery will follow
--- NOTE | 2018-11-06 12:05 | MB ---
cc: Dano Noble MD DATE: 11/05/2018 REASON FOR CONSULTATION: Right hand infection. HISTORY OF PRESENT ILLNESS: The patient is a 43-year-old right-hand dominant male who presented to the ED with complaints of pain, swelling involving the right hand for the past 2 days, which has been gradually worsening. The patient initially had some issues with a tooth infection and noticed an infection of the right hand. The patient gives history of IV drug abuse in the past and he has been clean for the past 5 months. He also complains of pain, worse with range of motion of the fingers, but denies any numbness. Denies any history of similar complaints in the past. Denies any insect bites or trauma. Also, complains of fever. PAST MEDICAL HISTORY: Significant for hepatitis C, not on treatment. PAST SURGICAL HISTORY: Significant for a traumatic amputation of the left thumb. PHYSICAL EXAMINATION: GENERAL: The patient is alert, oriented x3. EXTREMITIES: Examination of the right hand/wrist reveals swelling and erythema over the dorsal aspect of the hand, more so on the ulnar aspect corresponding to the extensor tendons. Tenderness noted over the region. Diffuse swelling noted over that region. No fluctuant mass noted. The tenderness also extends over the dorsal aspect of the wrist. On making a fist, terminal degrees of flexion of the fingers are limited and painful. Terminal degrees of extension of the fingers at the MP joint are limited and painful. He has intact sensation distally. He has intact distal circulation. LABORATORY DATA: His lab work was reviewed. He has a white count of 8 and a shift of 61%. IMAGING: The patient had x-rays of right hand, which has evidence of prior injury to the thumb with amputation of the distal phalanx region of the thumb. Old healed fracture of the fourth and the fifth distal phalanges. The patient had an ultrasound of the right hand, which shows subcutaneous soft tissue swelling with no focal pockets of pus or fluid collection. ASSESSMENT: A 43-year-old male with extensor tenosynovitis of right hand and wrist. PLAN: The patient does not have a reflexion mass or focal collection or abscess clinically or on imaging. We will continue with IV antibiotics, keep the patient n.p.o. from midnight for clinical reassessment the next day. It there are worsening symptoms, will take him for incision and drainage. The patient has been advised regarding limb elevation and range of motion exercises. Hand Surgery will follow. Dano Noble MD SE/spencer , 11:22 AM , 11:32 AM KATE
[2018-11-06] MEDS: Ibuprofen 600 MG Tablet PO PRN (15:31)
[2018-11-06] MEDS: Ketorolac Inj 30 MG/ML (IVP) Vial IV.PUSH PRN (18:45)
[2018-11-06] MEDS: Melatonin 5 MG Tablet PO PRN (21:53)
[2018-11-07] MEDS: Piperacil/Tazo 3.375 GM Premix 3.375 GM/50 ML PIGGYBACK IV.SIG SCH ×2 (06:40→12:39)
[2018-11-07] MEDS: Vancomycin Inj 1,000 MG in Sodium Chlor 0.9% Inj 250 ML IV.SIG SCH (08:44)
--- NOTE | 2018-11-07 11:44 | P.PNIM ---
Subjective Interval history: Improvement of patient's hand has reached a bit of a plateau. It remains tender, there is increased spread of swelling proximal end of extensor tendon sheath. Due to the lack of improvement I asked further questions about atypical sources of infection when I prompted him about [place] water or river water he mentioned [place] he [place] the cut on his cuticle. Physical Exam Vital signs: Last Vital Signs Temp 98.0 F 11/07/18 07:55 Pulse 63 11/07/18 07:55 Resp 17 11/07/18 07:55 BP 110/63 11/07/18 07:55 Pulse Ox 97 11/07/18 07:55 Intake & Output 11/05/18 11/06/18 11/07/18 11/08/18 06:59 06:59 06:59 06:59 Intake Total 1400 / 1400 350 / 350 300 / 300 Output Total 300 / 300 Balance 1100 / 1100 350 / 350 300 / 300 Weight 79 kg Narrative: GENERAL: AAOx3, no acute distress SKIN: Warm and dry. Less redness, continuing induration over dorsum of hand with further spread proximally in extensor tendon sheath HEAD: Atruamtic, normocephalic. EYES: No scleral icterus. No injection or drainage. ENT: Moist mucous membranes, patent nares, no erythema of oropharynx. NECK: Supple, trachea midline. No JVD or lymphadenopathy. Normal thyroid. CARDIOVASCULAR: Regular rate and rhythm. No murmurs, gallops, or rubs. RESPIRATORY: Breath sounds clear equal bilaterally. No crackles or wheezes. No accessory muscle use. GASTROINTESTINAL: Abdomen soft, non-tender, nondistended, normal active bowel sounds MUSCULOSKELETAL: No cyanosis, or edema. NEURO: CN II-XII grossly intact, no focal deficits, no slurring of speech Results Labs CBC & Chem 7: 11/06/18 04:41 11/06/18 04:41 Labs: Microbiology 11/05/18 16:40 Blood - Peripheral Aerobic Blood Culture - Preliminary No growth in 2 days 11/05/18 16:40 Blood - Peripheral Anaerobic Blood Culture - Preliminary No growth in 2 days 11/05/18 16:35 Blood - Peripheral Aerobic Blood Culture - Preliminary No growth in 2 days 11/05/18 16:35 Blood - Peripheral Anaerobic Blood Culture - Preliminary No growth in 2 days Assessment and Plan (1) Extensor tenosynovitis of right wrist: Code(s): M65.841 - Other synovitis and tenosynovitis, right hand Status: Acute Plan Cellulitis of right hand Most likely source is a hangnail on his right fourth finger cuticle He also had a tattoo at home on his right wrist 3 weeks ago Patient has a past history of IV drug use, clean for 5 months, not likely related Antibiotics have showed slow improvement, further questioning today revealed a [place] Possible site of entry is a cut on his fourth digit cuticle, antibiotics will be changed to cover for vibrio vulnificus Plain film of the hand shows no evidence of osteomyelitis Doppler study of hand shows no evidence of DVT Continue with IV vancomycin, discontinue Zosyn, add Levaquin instead for coverage of vibrio vulnificus Continue ibuprofen with IV Toradol for breakthrough pain Appreciate hand surgery consult DVT prophylaxis SCDs Disposition Improvement has plateaued, Levaquin to replace Zosyn for better coverage of Vibrio vulnificus due to history of fishing and [place] with a cut on his cuticle. Follow clinically. Progress Note: Quality VTE Deep Vein Thrombosis/Pulmonary Embolism Present on Admission: No
[2018-11-07] MEDS: Ketorolac Inj 30 MG/ML (IVP) Vial IV.PUSH PRN ×2 (12:12→18:33)
[2018-11-07] MEDS: Ibuprofen 600 MG Tablet PO PRN (22:00)
[2018-11-07] MEDS: Melatonin 5 MG Tablet PO PRN (22:26)
[2018-11-08] MEDS: Ketorolac Inj 30 MG/ML (IVP) Vial IV.PUSH PRN ×4 (01:00→20:58)
[2018-11-08] MEDS: Ibuprofen 600 MG Tablet PO PRN ×2 (07:34→17:43)
[2018-11-08] MEDS: Vancomycin Inj 1,000 MG in Sodium Chlor 0.9% Inj 250 ML IV.SIG SCH (08:59)
--- NOTE | 2018-11-08 10:04 | XR ---
EXAM DATE: 11/08/2018 10:01 AM EST AGE/SEX: 43 years / Male INDICATIONS: Congestion. CLINICAL DATA: This is the patient's initial encounter. Patient reports that signs and symptoms have been present for 4 - 6 days and indicates a pain score of 0/10. MEDICAL/SURGICAL HISTORY: Hypertension. Cardiovascular disease. . esophageal surgery COMPARISON: [facility] – [place] SING[place] AP, 06/22/2015. . FINDINGS: The lungs are clear without infiltrate, nodule, or mass. There is no appreciable pleural effusion for technique. Heart and mediastinum are unremarkable. CONCLUSION: No acute cardiopulmonary disease. Electronically signed by: Tarik Moss MD Board Certified Radiologist 11/08/2018 10:03 AM EST
--- NOTE | 2018-11-08 12:49 | P.PNIM ---
Subjective Interval history: Patient seen and evaluated this morning at bedside. Patient denies subjective fever or chills. Patient does report pain in the right hand with worsening swelling near the wrist. Case briefly discussed with orthopedic group and they would like to get MRI through rule out any involvement of the tendon sheath. Physical Exam Vital signs: Last Vital Signs Temp 98.1 F 11/08/18 12:00 Pulse 80 11/08/18 12:00 Resp 14 11/08/18 12:00 BP 134/73 11/08/18 12:00 Pulse Ox 95 11/08/18 12:00 Intake & Output 11/06/18 11/07/18 11/08/18 11/09/18 06:59 06:59 06:59 06:59 Intake Total 1400 / 1400 350 / 350 510 / 510 250 / 250 Output Total 300 / 300 Balance 1100 / 1100 350 / 350 510 / 510 250 / 250 Weight 79 kg 82.4 kg General: No acute distress, conversational HEENT: EOMI Cardiovascular: S1/S2 Respiratory: Clear to auscultation Gastroenterology: Soft, nontender, nondistended Muscular skeletal: Right hand, wrist, and forearm swelling noted. Capillary refill less than 2 seconds. Right upper extremity radial pulse bounding. Capillary refill less than 2 seconds. Patient appears to be neurovascularly intact. Sensation intact in right upper extremity. No pus noted. Small abrasion over the nail bed of patient's fourth digit next to the pinky. Results Labs CBC & Chem 7: 11/06/18 04:41 11/06/18 04:41 Labs: Microbiology 11/05/18 16:40 Blood - Peripheral Aerobic Blood Culture - Preliminary No growth in 3 days 11/05/18 16:40 Blood - Peripheral Anaerobic Blood Culture - Preliminary No growth in 3 days 11/05/18 16:35 Blood - Peripheral Aerobic Blood Culture - Preliminary No growth in 3 days 11/05/18 16:35 Blood - Peripheral Anaerobic Blood Culture - Preliminary No growth in 3 days Imaging Imaging: Impressions Chest X-Ray 11/08/18 00:00 CONCLUSION: No acute cardiopulmonary disease. Assessment and Plan (1) Extensor tenosynovitis of right wrist: Code(s): M65.841 - Other synovitis and tenosynovitis, right hand Status: Acute Plan Patient is a 43-year-old male with past medical history of IV drug abuse presenting with right hand, wrist, forearm swelling concerning for cellulitis versus synovitis/tenosynovitis Infectious disease: Cellulitis versus synovitis/tenosynovitis Orthopedic hand consulted MRI of right wrist and hand ordered ESR/CRP level tomorrow morning Continue n.p.o. Blood culture follow-up: No growth to date Doppler study of hand shows no evidence of DVT Levaquin antibiotic Pain control: Ibuprofen, Toradol Hand elevation If patient fails to improve over the next 24 hours will consider infectious disease evaluation As per history patient had tattoo of the right extremity approximately 3 weeks prior to presentation, history of IV drug use although clean for the last 5 months. CODE STATUS: Full code DVT prophylaxis: Ambulation/SCDs Disposition: Medical surgical unit Progress Note: Quality VTE Deep Vein Thrombosis/Pulmonary Embolism Present on Admission: No
[2018-11-08] MEDS ORDERED: Gadobutrol PF 2 MMOL/2 ML Vial (for RAD) IV.SIG ONE (14:05)
--- NOTE | 2018-11-08 14:26 | MR ---
EXAM DATE: 11/08/2018 2:02 PM EST AGE/SEX: 43 years / Male INDICATIONS: Osteomyelitis. Right hand, wrist and arm swelling. CLINICAL DATA: This is the patient's subsequent encounter. Patient reports that signs and symptoms h ave been present for 2 days and indicates a pain score of 8/10. MEDICAL/SURGICAL HISTORY: . IVDU. . Right hand surgery/amputation of thumb. Esophageal surger y. COMPARISON: [facility], HAND COMPLETE RIGHT MIN 3V, 11/05/2018. . TECHNIQUE: Multiplanar, multisequence MRI examination was performed without contrast and after the i ntravenous administration of 8 ml Gadavist (gadobutrol) contrast as a single exam dose. FINDINGS: There is evidence for amputation of the first digit at the level of the interphalangeal joint. The ma rrow appears intact without evidence for osteomyelitis. There is no evidence for soft tissue fluid co llections or abscess formation. CONCLUSION: 1. Post amputation, otherwise unremarkable. Electronically signed by: Tarik Moss MD Board Certified Radiologist 11/08/2018 2:25 PM EST
--- NOTE | 2018-11-08 14:27 | MR ---
EXAM DATE: 11/08/2018 2:03 PM EST AGE/SEX: 43 years / Male INDICATIONS: Abscess. Right hand, wrist and arm swelling. CLINICAL DATA: This is the patient's subsequent encounter. Patient reports that signs and symptoms h ave been present for 2 days and indicates a pain score of 8/10. MEDICAL/SURGICAL HISTORY: . IVDU. . Right hand surgery/amputation of thumb. Esophageal surger y COMPARISON: No prior exams available for comparison. TECHNIQUE: Multiplanar, multisequence MRI examination was performed without contrast and after intra venous administration of 8 ml Gadavist (gadobutrol) contrast as a single exam dose. FINDINGS: The marrow signal appears intact. There is no evidence for osteomyelitis. There is no evide nce for fluid collections in the soft tissues formation. CONCLUSION: 1. No evidence for abscess or osteomyelitis. Electronically signed by: Tarik Moss MD Board Certified Radiologist 11/08/2018 2:26 PM EST
[2018-11-08] MEDS: Acetaminophen 325 MG Tablet PO PRN ×2 (14:31→20:55)
--- NOTE | 2018-11-08 16:50 | P.PN ---
Subjective Interval history: patient still complains of swelling and pain no fever Physical Exam Vital signs: Vital Signs 11/08/18 00:00 11/08/18 08:00 11/08/18 08:58 Temperature 98.2 F 97.6 F Pulse Rate 70 62 Respiratory Rate 18 14 16 Blood Pressure 118/70 116/73 Pulse Oximetry 98 99 11/08/18 08:59 11/08/18 12:00 11/08/18 14:57 Temperature 98.1 F Pulse Rate 80 Respiratory Rate 16 14 16 Blood Pressure 134/73 Pulse Oximetry 95 Intake & Output 11/07/18 11/08/18 11/08/18 18:59 06:59 18:59 Intake Total 450 / 450 60 / 60 400 / 400 Balance 450 / 450 60 / 60 400 / 400 Weight 82.4 kg Intake: IV 450 / 450 400 / 400 Levaquin 750 mg Premix Inj 150 150 / 150 150 / 150 ML @ 100 mls/hr IV.SIG Q24H [facility] Rx#:[id number] Zosyn 3.375 GM Premix 3.375 gm 50 / 50 In 50 ml @ 100 mls/hr IV.SIG Q8H TIM Rx#:[id number] Vancomycin Inj 1,000 MG In NS 250 / 250 250 / 250 Inj 250 ML @ 250 mls/hr IV.SIG Q24H TIM Rx#:[id number] Oral 60 / 60 Other: # Voids 1 Date of Last Bowel Movement 11/05/18 11/07/18 Narrative: right hand and wrist: erythema and swelling noted over the dorsal aspect of the hand. swelling noted over the distal forearm along the ulnar aspect able to make a full fist, terminal degrees of flexion is painful he has full extension of the fingers, ring finger is associated with pain intact sensation distally mri of the right hand and wrist: official read is normal Results - Labs CBC & Chem 7: 11/06/18 04:41 11/06/18 04:41 Microbiology 11/05/18 16:40 Blood - Peripheral Aerobic Blood Culture - Preliminary No growth in 3 days 11/05/18 16:40 Blood - Peripheral Anaerobic Blood Culture - Preliminary No growth in 3 days 11/05/18 16:35 Blood - Peripheral Aerobic Blood Culture - Preliminary No growth in 3 days 11/05/18 16:35 Blood - Peripheral Anaerobic Blood Culture - Preliminary No growth in 3 days - Imaging Impressions Chest X-Ray 11/08/18 00:00 CONCLUSION: No acute cardiopulmonary disease. Hand MRI 11/08/18 00:00 CONCLUSION: 1. Post amputation, otherwise unremarkable. Wrist MRI 11/08/18 00:00 CONCLUSION: 1. No evidence for abscess or osteomyelitis. Assessment and Plan - Assessment (1) Extensor tenosynovitis of right wrist Code(s): M65.841 - Other synovitis and tenosynovitis, right hand Status: Acute - Plan symptoms have improved, he is able to make a fist Had a discussion with Dr. Surya Alvarado, radiologist, extensor tenosynovitis with likely small collection fourth extensor continue with limb elevation and finger range of motion exercises npo after breakfast continue with IV antibiotics posted for I and D right hand on 11/09/18
[2018-11-08] MEDS: Melatonin 5 MG Tablet PO PRN (20:55)
[2018-11-09] MEDS: Ibuprofen 600 MG Tablet PO PRN (04:19)
[2018-11-09] MEDS: Ketorolac Inj 30 MG/ML (IVP) Vial IV.PUSH PRN ×2 (04:20→11:15)
[2018-11-09 07:07] LABS: Hematocrit 40.6 % (39.0-51.0); Hemoglobin 14.1 gm/dL (13.0-17.0); Mean Corpuscular HGB Conc 34.8 % (32.0-36.0); Mean Corpuscular Hemoglobin 31.1 pg (27.0-34.0); Mean Corpuscular Volume 89.4 fL (80.0-100.0); Mean Platelet Volume 8.2 fL (7.0-11.0); Platelet Count 176 th/mm3 (150-450); Red Blood Count 4.54 mil/mm3 (4.50-5.90); Red Cell Distribution Width 12.9 % (11.6-17.2); White Blood Count 5.2 th/mm3 (4.0-11.0)
[2018-11-09 07:36] LABS: Anion Gap 7 meq/L (5-15); Blood Urea Nitrogen 11 mg/dL (7-18); Calcium 8.4 mg/dL (8.5-10.1); Carbon Dioxide 25.8 meq/L (21.0-32.0); Chloride 110 meq/L (98-107); Glomerular Filtration Rate Greater Than 89 mL/min (>89); Glucose,Random 115 mg/dL (74-106); Potassium 3.7 meq/L (3.5-5.1); Sodium 143 meq/L (136-145)
[2018-11-09] MEDS: Vancomycin Inj 1,000 MG in Sodium Chlor 0.9% Inj 250 ML IV.SIG SCH (08:50)
[2018-11-09] MEDS: Acetaminophen 325 MG Tablet PO PRN (08:50)
--- NOTE | 2018-11-09 12:19 | P.PNIM ---
Subjective Interval history: Patient seen and examined this morning at the bedside continues to have pain and swelling Patient to go forI & D today BCx negative Physical Exam Vital signs: Vital Signs 11/08/18 14:57 11/08/18 16:00 11/08/18 18:27 Temperature 98.1 F Pulse Rate 78 Respiratory Rate 16 14 16 Blood Pressure 138/69 Pulse Oximetry 95 11/08/18 20:00 11/09/18 00:00 11/09/18 04:00 Temperature 97.5 F L 97.5 F L Pulse Rate 80 82 Respiratory Rate 16 16 16 Blood Pressure 130/73 127/75 Pulse Oximetry 98 99 11/09/18 08:00 Temperature 97.8 F Pulse Rate 77 Respiratory Rate 16 Blood Pressure 104/67 Pulse Oximetry 99 Intake & Output 11/08/18 11/09/18 11/09/18 18:59 06:59 18:59 Intake Total 400 / 400 250 / 250 Balance 400 / 400 250 / 250 Weight 82.4 kg Intake: IV 400 / 400 250 / 250 Levaquin 750 mg Premix Inj 150 150 / 150 ML @ 100 mls/hr IV.SIG Q24H [facility] Rx#:[id number] Vancomycin Inj 1,000 MG In NS 250 / 250 250 / 250 Inj 250 ML @ 250 mls/hr IV.SIG Q24H [facility] Rx#:[id number] Other: Date of Last Bowel Movement 11/07/18 11/07/18 11/07/18 General: No acute distress, conversational HEENT: EOMI Cardiovascular: S1/S2 Respiratory: Clear to auscultation bilaterally Gastroenterology: Soft, nontender, nondistended, + BS Muscular skeletal: Right hand, wrist, and forearm swelling noted. Capillary refill less than 2 seconds. Right upper extremity radial pulse bounding. C Patient appears to be neurovascularly intact. Sensation intact in right upper extremity. No pus noted. Small abrasion over the nail bed of patient's fourth digit next to the pinky. 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 Post amputation, otherwise unremarkable. Wrist MRI 11/08/18 00:00 CONCLUSION: 1. No evidence for abscess or osteomyelitis. Assessment and Plan (1) Extensor tenosynovitis of right wrist: Code(s): M65.841 - Other synovitis and tenosynovitis, right hand Status: Acute Plan Patient is a 43-year-old male with past medical history of IV drug abuse presenting with right hand, wrist, forearm swelling concerning for cellulitis versus synovitis/tenosynovitis Infectious disease: Cellulitis versus synovitis/tenosynovitis Orthopedic hand consulted MRI of right wrist - small tendon involvement ESR/CRP level with elevation - Patient for I&D in OR - cultures if possible while in OR Continue n.p.o. status pending OR - If swelling and symptoms fail to improve will consider ID evaluation. Blood culture follow-up: No growth to date Doppler study of hand shows no evidence of DVT Levaquin + vancomycin antibiotic Pain control: Ibuprofen, Toradol Hand elevation If patient fails to improve over the next 24 hours will consider infectious disease evaluation As per history patient had tattoo of the right extremity approximately 3 weeks prior to presentation, history of IV drug use although clean for the last 5 months. CODE STATUS: Full code DVT prophylaxis: Ambulation/SCDs Disposition: Medical surgical unit Progress Note: Quality VTE Deep Vein Thrombosis/Pulmonary Embolism Present on Admission: No
[2018-11-09] MEDS ORDERED: Lidocaine 2% Inj 50 ML Vial ONE (16:10)
[2018-11-09] MEDS ORDERED: Bupivacaine PF 0.5% Inj 30 ML Vial ONE (16:10)
[2018-11-09] MEDS ORDERED: Neomycin/Polymyxin G.U. Irrigant 1 ML Ampul ONE ×2 (16:14→17:53)
[2018-11-09] MEDS ORDERED: Neomycin/Polymyxin G.U. Irrigant 1 ML Ampul IRRIGATION ONE (18:24)
[2018-11-09] MEDS ORDERED: ceFAZolin 2 GM Premix Inj 2 GM/50 ML PIGGYBACK IV.SIG ONE (18:31)
--- NOTE | 2018-11-09 19:00 | P.OP ---
- Preoperative Diagnosis (1) Extensor tenosynovitis of right wrist - Postoperative Diagnosis (1) Extensor tenosynovitis of right wrist Date of procedure: 11/09/18 Procedure: incision and drainage right hand extensor tenosynovectomy fourth compartment right wrist arthrotomy right wrist Anesthesia: GETA Surgeon: Dano Noble MD Estimated blood loss (mL): 10 Tourniquet time (min): 65 Operation and Findings: extensive infectious extensor tenosynovitis fourth compartment
[2018-11-09] MEDS ORDERED: fentaNYL Citrate Inj 100 MCG/2 ML Ampul ONE (19:08)
[2018-11-09] MEDS ORDERED: *morphine SULFATE 10 MG/ML PERIprocedure ONLY ONE (19:14)
[2018-11-09] MEDS ORDERED: *morphine SULFATE 4 MG/ML PERIprocedure ONLY ONE (19:31)
[2018-11-09] MEDS ORDERED: HYDROmorphone PF Inj 0.5 MG/0.5 ML Syringe ONE (19:42)
--- NOTE | 2018-11-09 20:20 | MP ---
cc: Dano Noble MD DATE OF OPERATION: 11/09/2018 PREOPERATIVE DIAGNOSIS: Extensor tenosynovitis, right wrist. POSTOPERATIVE DIAGNOSIS: Extensor tenosynovitis, right wrist fourth compartment. PROCEDURE PERFORMED: Incision, drainage, right hand, extensor tenosynovectomy fourth compartment right wrist, and arthrotomy right wrist. SURGEON: Dano Noble MD ANESTHESIA: General. ESTIMATED BLOOD LOSS: 10 mL. TOURNIQUET TIME: 65 minutes at 250 mmHg. DISPOSITION: PACU, stable. INDICATIONS: The patient is a 43-year-old male admitted to the hospital 3-4 days ago with pain and swelling involving the right hand and wrist, which has been gradually worsening for the past 2-3 days despite IV antibiotics. On examination, he had swelling, redness over the dorsal aspect of the hand and over the dorsal aspect of the wrist. MRI scan showed a small abscess over the extensor tendon region of the ring finger and extensor tenosynovitis of the fourth compartment. The patient was consented for incision and drainage of right hand and right wrist. He was explained the risks and benefits of the procedure. PROCEDURE IN DETAIL: The patient was brought to the operating room under general anesthesia. The right upper extremity was sterilely prepped and draped. Incision site was marked in a lazy S fashion over the dorsal aspect of the hand and the wrist starting from the fourth metacarpal neck region. After limb elevation, tourniquet was inflated to 250 mmHg. Incision was made over the distal part on the dorsal aspect of the hand and soft tissue dissection was carried out on the dissection. There was extensive inflammatory tissue in the region. There was also evidence of fraying of the extensor tendon to the ring finger with purulence in the region. The swab was obtained for culture and sensitivity. Decision was made to proceed with an exploration of the fourth compartment. Incision was made over the dorsal aspect of the wrist in a curvilinear fashion and lazy S fashion. Skin flaps were elevated. The sensory branches of the radial and ulnar nerve was protected. There was extensive inflammatory tissue in the subcutaneous region, which was excised using blunt and sharp dissection. Bleeding points were cauterized with bipolar cautery. There was extensive inflammatory tissue around the extensor tendons, which was extending underneath the extensor retinaculum just proximal to the extensor retinaculum. The third extensor compartment was opened, which was not involved and the extensor pollicis longus tendon was transposed subcutaneously. The septum between the third and the fourth compartment was incised and the extensor retinaculum was elevated as an ulnar-based flap exposing the fourth extensor compartment. Extensive inflammatory tissue around the extensor tendon was noted. This was debrided using blunt and sharp dissection. The tendons were retracted and there was evidence of bulging of the wrist joint capsule. Hence decision was made to proceed with arthrotomy of the wrist. A small opening was made along the radial aspect of the radiocarpal joint and on further exploration, there was no evidence of involvement of the wrist joint with infection. There was evidence of inflammatory synovium within the wrist joint, which was debrided. The posterior interosseous neurectomy was carried out over the base of the fourth compartment. The inflammatory tissue was extending along the extensor tendons onto the distal aspect of the forearm, which was debrided. Thorough wash was given using normal saline mixed with irrigant. About 2 liters of solution was used. Wrist joint was also thoroughly washed with the solution. Packing of the wounds were then carried out using quarter-inch iodoform packing material including the wrist joint was packed. The extensor pollicis longus tendon was then transposed subcutaneously and the extensor retinaculum was approximated over the extensor tendon using 3-0 Supramid stitch. Tourniquet was deflated at 65 minutes. He had good distal circulation after release of the tourniquet. Bleeding points were cauterized with bipolar cautery. Skin flaps were then approximated using 4-0 nylon in a horizontal mattress interrupted fashion. About 8 mL of local anesthesia was injected into that region. Bulky hand dressing was applied, which was held in place by a Sof-Rol and a bias hand wrap. The patient was recovered and sent to recovery room in stable condition. The specimen was sent for swab for culture and sensitivity from the extensor tendon sheath. Specimen was sent for pathology from the extensor tenosynovium and a third specimen was swab from the radiocarpal joint. The patient was recovered and sent to recovery room in stable condition. We will follow up cultures and we will continue with IV antibiotics. Dano Noble MD SE/ila , 07:06 PM , 07:20 PM
[2018-11-09] MEDS: Morphine Sulfate Inj 2 MG/ML Vial IV.PUSH PRN (22:21)
[2018-11-10] MEDS: Morphine Sulfate Inj 2 MG/ML Vial IV.PUSH PRN ×3 (01:53→05:15)
[2018-11-10 05:59] LABS: Hemoglobin 14.3 gm/dL (13.0-17.0); Mean Corpuscular Hemoglobin 31.2 pg (27.0-34.0); Mean Corpuscular Volume 89.4 fL (80.0-100.0); Mean Platelet Volume 8.5 fL (7.0-11.0); Platelet Count 229 th/mm3 (150-450); Red Blood Count 4.59 mil/mm3 (4.50-5.90); Red Cell Distribution Width 13.1 % (11.6-17.2); White Blood Count 9.8 th/mm3 (4.0-11.0)
[2018-11-10 06:07] LABS: Calcium 8.9 mg/dL (8.5-10.1); Carbon Dioxide 25.6 meq/L (21.0-32.0); Magnesium 1.9 mg/dL (1.5-2.5); Potassium 4.6 meq/L (3.5-5.1)
[2018-11-10 07:02] LABS: Hepatitis A IgM Antibody Nonreactive (Nonreactive); Hepatitits B Surface Antigen Nonreactive (Nonreactive)
[2018-11-10] MEDS: Ketorolac Inj 30 MG/ML (IVP) Vial IV.PUSH PRN ×2 (07:13→17:56)
[2018-11-10] MEDS: Vancomycin Inj 1,000 MG in Sodium Chlor 0.9% Inj 250 ML IV.SIG SCH (09:23)
[2018-11-10] MEDS: Ibuprofen 600 MG Tablet PO PRN (12:38)
[2018-11-10] MEDS: HYDROmorphone PF Inj 0.5 MG/0.5 ML Syringe IV.PUSH PRN ×3 (13:15→20:54)
--- NOTE | 2018-11-10 14:16 | P.PNIM ---
Subjective Interval history: Evaluated this morning at bedside. Patient denies subjective fever and chills. Patient reports that yesterday before going to the operating room he was suffering severe pain in the right wrist and noticed worsening swelling over the dorsal part of the hand. Patient is status post incision and drainage by hand. Physical Exam Vital signs: Vital Signs 11/09/18 19:02 11/09/18 19:15 11/09/18 19:30 Temperature 98.1 F 98.1 F Pulse Rate 98 H 93 H 93 H Respiratory Rate 17 17 17 Blood Pressure 132/78 131/87 131/87 Pulse Oximetry 100 100 100 11/09/18 19:45 11/09/18 20:00 11/10/18 00:00 Temperature 98.1 F 98.3 F Pulse Rate 89 86 80 Respiratory Rate 17 17 16 Blood Pressure 138/88 131/84 118/66 Pulse Oximetry 96 97 96 11/10/18 04:00 11/10/18 08:00 11/10/18 09:00 Temperature 97.5 F L 98.1 F Pulse Rate 85 76 Respiratory Rate 16 16 16 Blood Pressure 117/55 L 108/59 L Pulse Oximetry 97 97 11/10/18 12:00 11/10/18 13:08 11/10/18 13:45 Temperature 98.2 F Pulse Rate 99 H Respiratory Rate 16 18 18 Blood Pressure 142/70 H Pulse Oximetry 99 Intake & Output 11/09/18 11/10/18 11/10/18 18:59 06:59 18:59 Intake Total 400 / 400 2050 / 2050 250 / 250 Output Total 720 / 720 1210 / 1210 Balance -320 / -320 840 / 840 250 / 250 Weight 83.4 kg Intake: IV 400 / 400 150 / 150 250 / 250 Ofirmev Inj 1,000 mg In 100 ml 100 / 100 @ 400 mls/hr IV.SIG Q6H PRN Rx# :[id number] Levaquin 750 mg Premix Inj 150 150 / 150 ML @ 100 mls/hr IV.SIG Q24H [facility] Rx#:[id number] Vancomycin Inj 1,000 MG In NS 250 / 250 250 / 250 Inj 250 ML @ 250 mls/hr IV.SIG Q24H [facility] Rx#:[id number] Ancef 2 GM Premix Inj 2 gm In 50 / 50 50 ml @ 100 mls/hr IV.SIG ONCE ONE Rx#:[id number] Oral 900 / 900 Anesthesia Amount 1000 / 1000 Output: Urine 720 / 720 1200 / 1200 Estimated Blood Loss Other: # Voids 2 Date of Last Bowel Movement 11/07/18 General: No acute distress HEENT: EOMI, PERRLA Cardiovascular: Tachycardia, regular rhythm Respiratory: Clear to auscultation anteriorly Muscular skeletal: Right hand dressing in place elevated above the level of the heart. Neurology: Sensation intact in hand Extremity: No lower extremity edema, due to dressing unable to palpate radial pulse in right upper extremity. Results Labs CBC & Chem 7: 11/10/18 04:36 11/10/18 04:36 Labs: Microbiology 11/05/18 16:40 Blood - Peripheral Aerobic Blood Culture - Final No growth in 5 days 11/05/18 16:40 Blood - Peripheral Anaerobic Blood Culture - Final No growth in 5 days 11/05/18 16:35 Blood - Peripheral Aerobic Blood Culture - Final No growth in 5 days 11/05/18 16:35 Blood - Peripheral Anaerobic Blood Culture - Final No growth in 5 days 11/09/18 20:31 Wound - Hand Fungal Smear - Final No fungal elements seen 11/09/18 20:34 Wound - Wrist Fungal Smear - Final No fungal elements seen 11/09/18 20:34 Wound - Wrist Gram Stain - Final 11/09/18 20:31 Wound - Hand Gram Stain - Final Assessment and Plan (1) Extensor tenosynovitis of right wrist: Code(s): M65.841 - Other synovitis and tenosynovitis, right hand Status: Acute Plan Patient is a 43-year-old male with past medical history of IV drug abuse presenting with right hand, wrist, forearm swelling concerning for cellulitis versus synovitis/tenosynovitis Infectious disease: Cellulitis versus synovitis/tenosynovitis Orthopedic hand consulted MRI of right wrist - small tendon involvement - Patient Status post incision and drainage on 11/09 - Gram stain: No WBC seen, no organisms seen - Wound culture: Pending - Infectious disease evaluation. Pictures of patient wrist show that he continues to have worsening swelling and pain and erythema despite different regimens being used During my time with the patient as well as prior to my arrival. I am concerned that patient is not responding to my therapy with antibiotics and will request any additional input that I can obtain Blood culture follow-up: No growth to date Doppler study of hand shows no evidence of DVT Levaquin + vancomycin antibiotic Pain control: Ibuprofen, Toradol, 0.5 mg Dilaudid every 3 hours Hand elevation As per history patient had tattoo of the right extremity approximately 3 weeks prior to presentation, history of IV drug use although clean for the last 5 months. CODE STATUS: Full code DVT prophylaxis: Ambulation/SCDs Disposition: Medical surgical unit Progress Note: Quality VTE Deep Vein Thrombosis/Pulmonary Embolism Present on Admission: No
--- NOTE | 2018-11-10 15:50 | P.CONID ---
History of Present Illness Service: ID Consult date: 11/10/18 Requesting Physician: Mikel Lopes Reason for Consult: extensive infectious extensor tenosynovitis fourth compartment Primary Care Provider: UNKNOWN History of Present Illness: 43 male with h/o IVDU (quit few mos ago) presented with 1 week of worsening pain swelling and redness of his R hand He thinks he cought his 4th finger on fishing hook prior to his symptoms started He presernted afbrile with normal WBC and stable vss His pain was severe to thie point he could not sleep and he had qute prominent swelling of the dorsum of the R hand He was seen by hand surgeon and diagnosed wiwith extensor tenosynovitis of right hand and wrist. On 11/09/2018 he underwent Incision, drainage, right hand, extensor tenosynovectomy fourth compartment right wrist, and arthrotomy right wrist. by Dr Noble Op cultures growing MSSA On Vancomycin + Levofloxacin/ Review of Systems All other systems reviewed negative except as stated in HPI PMFSH - History History Provided By: Patient - Surgical History Surgical History: Surgical History (Last Reviewed 11/10/18 @ 15:44 by Ingrid Mckeon MD) History of amputation of right thumb History of esophageal surgery - Family History Family History: Family History (Last Reviewed 11/10/18 @ 15:44 by Ingrid Mckeon MD) Other Hypertension - Social History I have reviewed the patient's Social History: Yes - Tobacco History Second Hand Smoke Exposure: Yes Tobacco Use In Past 30 Days: Yes Smoking Status: Heavy tobacco smoker Tobacco Type: Cigarettes - Alcohol History How Often Do You Have a Drink Containing Alcohol: Monthly or less - Substance Use History Substance History: Past History - Substance Use Type Methamphetamine Status: Early Remission Route Used: Inhalation Last Used: 05/23/2018 - Travel History Recent Travel in the [place] Within the Last 8 Weeks: No Recent Travel Out of the Country Within the Last 8 Weeks: No - Immunization History Tetanus Immunization: Unsure Medications and Allergies Active Medications: Active Medications Acetaminophen (Tylenol) 650 mg PO Q4H PRN PRN Reason: Temp > 100.4 Last Admin: 11/09/18 08:50 Dose: 650 mg Al Hydroxide/Mg Hydroxide (Milk Of Magnesia Liq) 30 ml PO Q12H PRN PRN Reason: Mild Constipation Hydromorphone HCl (Dilaudid Pf Inj) 0.5 mg IV.PUSH Q3H PRN PRN Reason: PAIN 1-10 Last Admin: 11/10/18 13:15 Dose: 0.5 mg Vancomycin HCl 1,000 mg/ (Sodium Chloride) 250 mls @ 250 mls/hr IV.SIG Q24H TIM Last Infusion: 11/10/18 10:23 Dose: Infused Levofloxacin/Dextrose (Levaquin 750 Mg Premix Inj) 150 mls @ 100 mls/hr IV.SIG Q24H TIM Last Infusion: 11/10/18 14:09 Dose: Infused Acetaminophen (Ofirmev Inj) 1,000 mg in 100 mls @ 400 mls/hr IV.SIG Q6H PRN PRN Reason: BREAKTHROUGH PAIN Last Infusion: 11/09/18 13:00 Dose: Infused Ibuprofen (Motrin) 600 mg PO Q8H PRN PRN Reason: Acute Pain Last Admin: 11/10/18 12:38 Dose: 600 mg Ketorolac Tromethamine (Toradol Inj) 30 mg IV.PUSH Q6H PRN PRN Reason: BREAKTHROUGH PAIN Last Admin: 11/10/18 07:13 Dose: 30 mg Melatonin (Melatonin) 5 mg PO HS PRN PRN Reason: INSOMNIA Last Admin: 11/08/18 20:55 Dose: 5 mg Miscellaneous Information ([facility] Nursing Information) 1 each OTHER UNSCH PRN PRN Reason: SEE LABEL COMMENTS Stop: 11/10/18 20:50 Nicotine (Habitrol 14 Mg Patch.24 Hr) 1 patch [facility] Last Admin: 11/10/18 09:23 Dose: 1 patch Ondansetron HCl (Zofran Inj) 4 mg IV.PUSH Q6H PRN PRN Reason: NAUSEA OR VOMITING Patch Removal (Remove Old Patch) 1 each [facility] Last Admin: 11/09/18 21:46 Dose: 1 each Sodium Chloride (Ns Flush) 2 ml IV.FLUSH BID TIM Last Admin: 11/10/18 09:24 Dose: 2 ml Sodium Chloride (Ns Flush) 2 ml IV.FLUSH PRN PRN PRN Reason: FLUSH AFTER USING IV ACCESS Allergies Allergy/AdvReac Type Severity Reaction Status Date / Time No Known Allergies Allergy Verified 11/05/18 15:56 Home Medications Medication Instructions Recorded Confirmed Type No Known Home Medications 11/05/18 11/05/18 History Exam Vital signs: Vital Signs 11/09/18 19:02 11/09/18 19:15 11/09/18 19:30 Temperature 98.1 F 98.1 F Pulse Rate 98 H 93 H 93 H Respiratory Rate 17 17 17 Blood Pressure 132/78 131/87 131/87 Pulse Oximetry 100 100 100 11/09/18 19:45 11/09/18 20:00 11/10/18 00:00 Temperature 98.1 F 98.3 F Pulse Rate 89 86 80 Respiratory Rate 17 17 16 Blood Pressure 138/88 131/84 118/66 Pulse Oximetry 96 97 96 11/10/18 04:00 11/10/18 08:00 11/10/18 09:00 Temperature 97.5 F L 98.1 F Pulse Rate 85 76 Respiratory Rate 16 16 16 Blood Pressure 117/55 L 108/59 L Pulse Oximetry 97 97 11/10/18 12:00 11/10/18 13:08 11/10/18 13:45 Temperature 98.2 F Pulse Rate 99 H Respiratory Rate 16 18 18 Blood Pressure 142/70 H Pulse Oximetry 99 Intake & Output 11/09/18 11/10/18 11/10/18 18:59 06:59 18:59 Intake Total 400 / 400 2050 / 2050 400 / 400 Output Total 720 / 720 1210 / 1210 Balance -320 / -320 840 / 840 400 / 400 Weight 83.4 kg Intake: IV 400 / 400 150 / 150 400 / 400 Ofirmev Inj 1,000 mg In 100 ml 100 / 100 @ 400 mls/hr IV.SIG Q6H PRN Rx# :[id number] Levaquin 750 mg Premix Inj 150 150 / 150 150 / 150 ML @ 100 mls/hr IV.SIG Q24H [facility] Rx#:[id number] Vancomycin Inj 1,000 MG In NS 250 / 250 250 / 250 Inj 250 ML @ 250 mls/hr IV.SIG Q24H [facility] Rx#:[id number] Ancef 2 GM Premix Inj 2 gm In 50 / 50 50 ml @ 100 mls/hr IV.SIG ONCE ONE Rx#:[id number] Oral 900 / 900 Anesthesia Amount 1000 / 1000 Output: Urine 720 / 720 1200 / 1200 Estimated Blood Loss 10 / 10 Other: # Voids 2 Date of Last Bowel Movement 11/07/18 - Constitutional no acute distress, average body habitus - Routine HEENT Exam Head: Present: normocephalic, atraumatic Eye: Present: EOMI, PERRL ENT: Present: mucous membranes moist, oropharynx clear - Routine Neck Exam Present: supple, full ROM - Routine Respiratory Exam Present: CTA bilaterally. Absent: accessory muscle use, respiratory distress - Routine Cardiovascular Exam Present: RRR, S1, S2. Absent: murmur, gallop, rubs - Routine Abdominal Exam Present: soft, normoactive bowel sounds. Absent: tenderness, distended - Routine Extremities Exam Absent: cyanosis, clubbing, edema Comments: RUE: R hand with heavyu post op bandage ionplace dressing intact RUE raised to IV pole no ascending cellulitis, lympnagitis in prox arm no ipsilateral lymphadenopathy - Routine Skin Exam Present: intact, dry. Absent: rash - Routine Neurological Exam Present: alert, oriented X3, CN II-XII intact. Absent: sensory deficit, motor deficit - Routine Psychiatric Exam Present: normal affect, cooperative Results - Labs CBC & Chem 7: 11/10/18 04:36 11/10/18 04:36 Labs: Laboratory Results - last 24 hr 11/10/18 11/10/18 11/10/18 04:36 04:36 04:36 WBC 9.8 D RBC 4.59 Hgb 14.3 Hct 41.0 MCV 89.4 MCH 31.2 MCHC 35.0 RDW 13.1 Plt Count 229 D MPV 8.5 Sodium 138 Potassium 4.6 D Chloride 106 Carbon Dioxide 25.6 Anion Gap 6 BUN 14 Creatinine 1.08 Estimated GFR 74 L Random Glucose 161 H Calcium 8.9 Magnesium 1.9 Hepatitis A IgM Ab Nonreactive Hep Bs Antigen Nonreactive Hep B Core IgM Ab Nonreactive Hep C IgG Ab Reactive H - Imaging Hand X-Ray 11/05/18 16:36 CONCLUSION: Chronic changes and no definite fracture for technique. Upper Extremity Ultrasound 11/05/18 16:36 CONCLUSION: 1. Uterus subcutaneous swelling without focal pocket of abscess. Chest X-Ray 11/08/18 00:00 CONCLUSION: No acute cardiopulmonary disease. Hand MRI 11/08/18 00:00 CONCLUSION: 1. Post amputation, otherwise unremarkable. Wrist MRI 11/08/18 00:00 CONCLUSION: 1. No evidence for abscess or osteomyelitis. Assessment and Plan - Plan Extensor tenosynovitis, right wrist fourth compartment, MSSA sp I+D H/o IVDU , pt states he quit mos ago cont vanco untill MICs are back start oxaciilin dc levaquin Anticiapte evetual transition to oral drugs
[2018-11-11] MEDS: HYDROmorphone PF Inj 0.5 MG/0.5 ML Syringe IV.PUSH PRN ×8 (00:08→22:22)
[2018-11-11 05:35] LABS: Hematocrit 38.6 % (39.0-51.0); Hemoglobin 13.1 gm/dL (13.0-17.0); Mean Corpuscular Hemoglobin 30.5 pg (27.0-34.0); Mean Corpuscular Volume 89.8 fL (80.0-100.0); Mean Platelet Volume 8.2 fL (7.0-11.0); Platelet Count 181 th/mm3 (150-450); Red Cell Distribution Width 13.3 % (11.6-17.2); White Blood Count 6.5 th/mm3 (4.0-11.0)
[2018-11-11 06:01] LABS: Anion Gap 7 meq/L (5-15); Blood Urea Nitrogen 12 mg/dL (7-18); Chloride 108 meq/L (98-107); Glomerular Filtration Rate Greater Than 89 mL/min (>89); Glucose,Random 90 mg/dL (74-106); Sodium 142 meq/L (136-145)
[2018-11-11] MEDS: Vancomycin Inj 1,000 MG in Sodium Chlor 0.9% Inj 250 ML IV.SIG SCH (10:14)
--- NOTE | 2018-11-11 15:22 | P.PNIM ---
Subjective Interval history: She is seen and evaluated this morning on follow-up. Patient status post OR Patient denies subjective fever or chills but does report significant pain in the right wrist and arm after initial dressings have been redone and packing removed by hand team. Otherwise patient denies chest pain or shortness of breath. Microbiology at this point with wound culture negative times 48 hours, acid- fast bacilli smear negative, fungal smear negative. Wound specimen from 11/09 significant for Staphylococcus aureus pansensitive. Patient tolerating vancomycin and ofloxacin antibiotic Physical Exam Vital signs: Vital Signs 11/10/18 16:00 11/10/18 17:13 11/10/18 20:00 Temperature 98.8 F 98.2 F Pulse Rate 108 H 90 Respiratory Rate 17 18 Blood Pressure 141/81 H 126/78 Pulse Oximetry 98 98 11/11/18 00:00 11/11/18 04:00 11/11/18 08:00 Temperature 98.5 F 97.9 F 97.8 F Pulse Rate 76 68 72 Respiratory Rate 20 20 16 Blood Pressure 157/98 H 137/77 107/74 Pulse Oximetry 97 97 97 11/11/18 12:00 Temperature 97.9 F Pulse Rate 65 Respiratory Rate 18 Blood Pressure 119/71 Pulse Oximetry 98 Intake & Output 11/10/18 11/11/18 11/11/18 18:59 06:59 18:59 Intake Total 1480 / 1480 540 / 540 100 / 100 Balance 1480 / 1480 540 / 540 100 / 100 Intake: IV 500 / 500 300 / 300 100 / 100 Levaquin 750 mg Premix Inj 150 150 / 150 ML @ 100 mls/hr IV.SIG Q24H [facility] Rx#:[id number] Prostaphlin Inj 2 GM In NS Inj 100 / 100 300 / 300 100 / 100 100 ML @ 200 mls/hr IV.SIG Q4H [facility] Rx#:[id number] Vancomycin Inj 1,000 MG In NS 250 / 250 Inj 250 ML @ 250 mls/hr IV.SIG Q24H [facility] Rx#:[id number] Oral 980 / 980 240 / 240 Other: # Voids 5 Date of Last Bowel Movement 11/07/18 general: Mild distress HEENT: EOMI Cardiovascular: S1/S2 Respiratory: Clear to auscultation bilaterally Musculoskeletal: Right upper extremity dressing in place with packing. Results Labs CBC & Chem 7: 11/11/18 05:03 11/11/18 05:03 Labs: Microbiology 11/09/18 20:34 Wound - Wrist Acid Fast Bacilli Smear - Final No acid fast bacilli seen 11/09/18 20:31 Wound - Hand Acid Fast Bacilli Smear - Final No acid fast bacilli seen 11/09/18 20:34 Wound - Wrist Gram Stain - Final 11/09/18 20:34 Wound - Wrist Wound Culture - Preliminary No growth in 48 hours 11/09/18 20:31 Wound - Hand Gram Stain - Final 11/09/18 20:31 Wound - Hand Wound Culture - Final Staphylococcus aureus 11/09/18 20:31 Wound - Hand Fungal Smear - Final No fungal elements seen 11/05/18 16:40 Blood - Peripheral Aerobic Blood Culture - Final No growth in 5 days 11/05/18 16:40 Blood - Peripheral Anaerobic Blood Culture - Final No growth in 5 days 11/05/18 16:35 Blood - Peripheral Aerobic Blood Culture - Final No growth in 5 days 11/05/18 16:35 Blood - Peripheral Anaerobic Blood Culture - Final No growth in 5 days Assessment and Plan (1) Extensor tenosynovitis of right wrist: Code(s): M65.841 - Other synovitis and tenosynovitis, right hand Status: Acute Plan Patient is a 43-year-old male with past medical history of IV drug abuse presenting with right hand, wrist, forearm swelling concerning for cellulitis versus synovitis/tenosynovitis Infectious disease: Cellulitis versus synovitis/tenosynovitis Orthopedic hand consulted MRI of right wrist - small tendon involvement - Patient Status post incision and drainage on 11/09 - Gram stain: No WBC seen, no organisms seen - Wound culture: no growth - Infectious disease evaluation appreciated Surgical pathology pending Blood culture follow-up: No growth to date x 5 Doppler study of hand shows no evidence of DVT Ofloxacin + vancomycin antibiotic Pain control: Ibuprofen, Toradol, 0.5 mg Dilaudid every 3 hours Hand elevation As per history patient had tattoo of the right extremity approximately 3 weeks prior to presentation, history of IV drug use although clean for the last 5 months. CODE STATUS: Full code DVT prophylaxis: Ambulation/SCDs Disposition: Medical surgical unit Progress Note: Quality VTE Deep Vein Thrombosis/Pulmonary Embolism Present on Admission: No
[2018-11-11] MEDS: Ketorolac Inj 30 MG/ML (IVP) Vial IV.PUSH PRN (16:21)
[2018-11-11] MEDS ORDERED: HYDROmorphone PF Inj 0.5 MG/0.5 ML Syringe IV.PUSH STA (16:29)
--- NOTE | 2018-11-11 16:38 | P.PN ---
Subjective Interval history: complains of pain right hand and wrist complaint with limb elevation no fever no numbness Physical Exam Vital signs: Vital Signs 11/10/18 17:13 11/10/18 20:00 11/11/18 00:00 Temperature 98.2 F 98.5 F Pulse Rate 90 76 Respiratory Rate 18 20 Blood Pressure 126/78 157/98 H Pulse Oximetry 98 97 11/11/18 04:00 11/11/18 08:00 11/11/18 12:00 Temperature 97.9 F 97.8 F 97.9 F Pulse Rate 68 72 65 Respiratory Rate 20 16 18 Blood Pressure 137/77 107/74 119/71 Pulse Oximetry 97 97 98 Intake & Output 11/10/18 11/11/18 11/11/18 18:59 06:59 18:59 Intake Total 1480 / 1480 540 / 540 450 / 450 Balance 1480 / 1480 540 / 540 450 / 450 Intake: IV 500 / 500 300 / 300 450 / 450 Levaquin 750 mg Premix Inj 150 150 / 150 ML @ 100 mls/hr IV.SIG Q24H [facility] Rx#:[id number] Prostaphlin Inj 2 GM In NS Inj 100 / 100 300 / 300 200 / 200 100 ML @ 200 mls/hr IV.SIG Q4H [facility] Rx#:[id number] Vancomycin Inj 1,000 MG In NS 250 / 250 250 / 250 Inj 250 ML @ 250 mls/hr IV.SIG Q24H [facility] Rx#:[id number] Oral 980 / 980 240 / 240 Other: # Voids 5 Date of Last Bowel Movement 11/07/18 Narrative: right upper extremity: swelling noted over the dorsal aspect of the hand and wrist packing in place serosanguinous drainage from packing site range of motion of the wrist is limited and painful has extensor lag of the fingers at MP joint, worse with ring finger intact sensation and circulation distally cultures: MSSA Results - Labs CBC & Chem 7: 11/11/18 05:03 11/11/18 05:03 Laboratory Results - last 24 hr 11/11/18 11/11/18 05:03 05:03 WBC 6.5 RBC 4.30 L Hgb 13.1 Hct 38.6 L MCV 89.8 MCH 30.5 MCHC 34.0 RDW 13.3 Plt Count 181 MPV 8.2 Sodium 142 Potassium 4.0 Chloride 108 H Carbon Dioxide 27.0 Anion Gap 7 BUN 12 Creatinine 0.71 Estimated GFR Greater than 89 Random Glucose 90 Calcium 8.0 L D Magnesium 2.0 Microbiology 11/09/18 20:34 Wound - Wrist Acid Fast Bacilli Smear - Final No acid fast bacilli seen 11/09/18 20:31 Wound - Hand Acid Fast Bacilli Smear - Final No acid fast bacilli seen 11/09/18 20:34 Wound - Wrist Gram Stain - Final 11/09/18 20:34 Wound - Wrist Wound Culture - Preliminary No growth in 48 hours 11/09/18 20:31 Wound - Hand Gram Stain - Final 11/09/18 20:31 Wound - Hand Wound Culture - Final Staphylococcus aureus 11/09/18 20:31 Wound - Hand Fungal Smear - Final No fungal elements seen Assessment and Plan - Assessment (1) Extensor tenosynovitis of right wrist Code(s): M65.841 - Other synovitis and tenosynovitis, right hand Status: Acute - Plan packing was pulled out couple of cms surrounding skin cleaned with alcohol wipes and dry dressing applied with 4 X 4 , soft roll and janeen wrap 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 My partner Dr. Melton will be covering over the weekend. will plan on pulling out the packing over the weekend continue with limb elevation and finger range of motion exercises.
[2018-11-12] MEDS: Ketorolac Inj 30 MG/ML (IVP) Vial IV.PUSH PRN (01:29)
[2018-11-12] MEDS: HYDROmorphone PF Inj 0.5 MG/0.5 ML Syringe IV.PUSH PRN ×7 (05:23→23:53)
[2018-11-12 08:41] LABS: Hematocrit 38.7 % (39.0-51.0); Hemoglobin 13.4 gm/dL (13.0-17.0); Mean Corpuscular HGB Conc 34.7 % (32.0-36.0); Mean Corpuscular Hemoglobin 31.5 pg (27.0-34.0); Mean Corpuscular Volume 90.8 fL (80.0-100.0); Mean Platelet Volume 8.4 fL (7.0-11.0); Platelet Count 177 th/mm3 (150-450); Red Blood Count 4.26 mil/mm3 (4.50-5.90); Red Cell Distribution Width 13.4 % (11.6-17.2); White Blood Count 5.5 th/mm3 (4.0-11.0)
[2018-11-12 09:04] LABS: Anion Gap 9 meq/L (5-15); Blood Urea Nitrogen 10 mg/dL (7-18); Calcium 8.1 mg/dL (8.5-10.1); Carbon Dioxide 26.5 meq/L (21.0-32.0); Chloride 106 meq/L (98-107); Glomerular Filtration Rate Greater Than 89 mL/min (>89); Glucose,Random 116 mg/dL (74-106); Potassium 3.8 meq/L (3.5-5.1); Sodium 141 meq/L (136-145)
--- NOTE | 2018-11-12 13:49 | P.PNIM ---
Subjective Interval history: Patient seen and evaluated to morning at bedside. Patient was found in bed with his arm in the corner not elevated as previously instructed. Patient reports that he has pain in the right wrist and extremity. Patient denies subjective fever Patient awaiting hand team to remove part of his packing Patient afebrile overnight T-max 97.9 Physical Exam Vital signs: Vital Signs 11/11/18 17:09 11/11/18 20:00 11/12/18 00:00 Temperature 97.4 F L 97.6 F Pulse Rate 82 79 Respiratory Rate 18 18 18 Blood Pressure 121/64 115/64 Pulse Oximetry 96 97 11/12/18 04:00 11/12/18 08:00 11/12/18 12:00 Temperature 97.2 F L 97.5 F L 97.7 F Pulse Rate 62 66 73 Respiratory Rate 18 18 20 Blood Pressure 115/64 110/65 127/74 Pulse Oximetry 96 95 96 Intake & Output 11/11/18 11/12/18 11/12/18 18:59 06:59 18:59 Intake Total 450 / 450 400 / 400 100 / 100 Balance 450 / 450 400 / 400 100 / 100 Intake: IV 450 / 450 400 / 400 100 / 100 Prostaphlin Inj 2 GM In NS Inj 200 / 200 400 / 400 100 / 100 100 ML @ 200 mls/hr IV.SIG Q4H [facility] Rx#:[id number] Vancomycin Inj 1,000 MG In NS 250 / 250 Inj 250 ML @ 250 mls/hr IV.SIG Q24H [facility] Rx#:[id number] Other: Date of Last Bowel Movement 11/07/18 11/07/18 general: No acute distress, conversational HEENT: EOMI Cardiovascular: S1/S2. No murmur Respiratory: Clear to auscultation anteriorly and posteriorly Gastroenterology: Soft, nontender, nondistended positive bowel sounds Muscular skeletal: Right upper extremity dressing intact. Sensation intact. 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 Extremity: No lower extremity edema Results Labs CBC & Chem 7: 11/12/18 07:21 11/12/18 07:21 Labs: Microbiology 11/09/18 20:34 Wound - Wrist Gram Stain - Final 11/09/18 20:34 Wound - Wrist Wound Culture - Final No growth in 72 hours (aerobically and anaerobically ) 11/09/18 20:34 Wound - Wrist Acid Fast Bacilli Smear - Final No acid fast bacilli seen 11/09/18 20:31 Wound - Hand Acid Fast Bacilli Smear - Final No acid fast bacilli seen 11/09/18 20:31 Wound - Hand Gram Stain - Final 11/09/18 20:31 Wound - Hand Wound Culture - Final Staphylococcus aureus Assessment and Plan (1) Extensor tenosynovitis of right wrist: Code(s): M65.841 - Other synovitis and tenosynovitis, right hand Status: Acute Plan Patient is a 43-year-old male with past medical history of IV drug abuse presenting with right hand, wrist, forearm swelling concerning for cellulitis versus synovitis/tenosynovitis Infectious disease: Cellulitis versus synovitis/tenosynovitis Orthopedic hand consulted MRI of right wrist - small tendon involvement - Patient Status post incision and drainage on 11/09 - Gram stain: No WBC seen, no organisms seen - Wound culture: no growth - Infectious disease evaluation appreciated Surgical pathology: Severe acute fibrinous and chronic synovitis. Blood culture follow-up: No growth to date x 5 Doppler study of hand shows no evidence of DVT antibiotics: Ofloxacin Pain control: Ibuprofen, 0.5 mg Dilaudid every 3 hours, ofirmev 1 g every 6 hours Hand elevation for swelling As per history patient had tattoo of the right extremity approximately 3 weeks prior to presentation, history of IV drug use although clean for the last 5 months. - OT evaluation when packing removed. ( wait on consult for now) CODE STATUS: Full code DVT prophylaxis: Ambulation/SCDs Disposition: Medical surgical unit Progress Note: Quality VTE Deep Vein Thrombosis/Pulmonary Embolism Present on Admission: No
--- NOTE | 2018-11-12 18:38 | P.PNOP ---
Subjective Interval history: complaining of pain and swelling right elbow and I was paged while in room with the patient about this Physical Exam Vital signs: Vital Signs 11/11/18 20:00 11/12/18 00:00 11/12/18 04:00 Temperature 97.4 F L 97.6 F 97.2 F L Pulse Rate 82 79 62 Respiratory Rate 18 18 18 Blood Pressure 121/64 115/64 115/64 Pulse Oximetry 96 97 96 11/12/18 08:00 11/12/18 12:00 11/12/18 16:00 Temperature 97.5 F L 97.7 F 98 F Pulse Rate 66 73 77 Respiratory Rate 18 20 18 Blood Pressure 110/65 127/74 144/86 H Pulse Oximetry 95 96 98 Intake & Output 11/11/18 11/12/18 11/12/18 18:59 06:59 18:59 Intake Total 450 / 450 400 / 400 200 / 200 Balance 450 / 450 400 / 400 200 / 200 Intake: IV 450 / 450 400 / 400 200 / 200 Prostaphlin Inj 2 GM In NS Inj 200 / 200 400 / 400 200 / 200 100 ML @ 200 mls/hr IV.SIG Q4H [facility] Rx#:[id number] Vancomycin Inj 1,000 MG In NS 250 / 250 Inj 250 ML @ 250 mls/hr IV.SIG Q24H [facility] Rx#:[id number] Other: Date of Last Bowel Movement 11/07/18 11/07/18 - Constitutional mild distress - Detailed Upper Extremity Exam Shoulder/Upper Arm: Right swelling (elbow moderate and right hand and wrist-- mild), Right tenderness (dorsal right hand and wrist), Right decreased ROM ( right wrist and fingers) Elbow: Right swelling (moderate, but no erythema) Wrist: Right wound (clean with bloody drainage on dressing and minimal expressible bloody drainage after packing removed) Results - Labs CBC & Chem 7: 11/12/18 07:21 11/12/18 07:21 Laboratory Results - last 24 hr 11/12/18 11/12/18 07:21 07:21 WBC 5.5 RBC 4.26 L Hgb 13.4 Hct 38.7 L MCV 90.8 MCH 31.5 MCHC 34.7 RDW 13.4 Plt Count 177 MPV 8.4 Sodium 141 Potassium 3.8 Chloride 106 Carbon Dioxide 26.5 Anion Gap 9 BUN 10 Creatinine 0.76 Estimated GFR Greater than 89 Random Glucose 116 H Calcium 8.1 L Microbiology 11/09/18 20:34 Wound - Wrist Gram Stain - Final 11/09/18 20:34 Wound - Wrist Wound Culture - Final No growth in 72 hours (aerobically and anaerobically ) 11/09/18 20:34 Wound - Wrist Acid Fast Bacilli Smear - Final No acid fast bacilli seen 11/09/18 20:31 Wound - Hand Acid Fast Bacilli Smear - Final No acid fast bacilli seen Assessment and Plan - Ortho Post Op Day # 3 - Problem List (1) Extensor tenosynovitis of right wrist Code(s): M65.841 - Other synovitis and tenosynovitis, right hand Status: Acute - Assessment and Plan pain improved after I removed the dressing and able to move right elbow and fingers better compartments are soft packings x3 removed and minimal expressible bloody drainage. patient states that velcro splint was too tight and he removed it earlier today wounds cleaned with peroxide and redressed with 4x4s, ABD and romelia and Malcolm wrap and much less bulky dressing, so Velcro splint able to fit and much more comfortable will get orthotic/prosthetic clinician to elevate in sling on IV pole and Dr. Noble will see again on Wednesday patient understands needs to be on IV antibiotics right now Encouraged to move fingers to keep swelling down
[2018-11-13] MEDS: HYDROmorphone PF Inj 0.5 MG/0.5 ML Syringe IV.PUSH PRN ×7 (03:04→21:56)
[2018-11-13] MEDS: Ibuprofen 600 MG Tablet PO PRN ×2 (07:53→20:59)
--- NOTE | 2018-11-13 12:54 | P.PNIM ---
Subjective Interval history: Patient seen and evaluated swelling at bedside Patient does report that he has significant pain that last for hours after his packing was removed and splint was placed Otherwise patient denies chest pain, shortness of breath. Patient does report some sweats but denies subjective fever and T-max overnight was 98.9 Patient to be followed up by hand team tomorrow Physical Exam Vital signs: Vital Signs 11/12/18 16:00 11/12/18 19:55 11/12/18 23:56 Temperature 98 F 98.9 F 97.9 F Pulse Rate 77 91 H 80 Respiratory Rate 18 18 18 Blood Pressure 144/86 H 127/81 108/58 L Pulse Oximetry 98 96 95 11/13/18 02:12 11/13/18 04:00 11/13/18 08:00 Temperature 97.6 F 97.2 F L Pulse Rate 77 74 Respiratory Rate 18 20 20 Blood Pressure 116/70 116/75 Pulse Oximetry 94 L 96 Intake & Output 11/12/18 11/13/18 11/13/18 18:59 06:59 18:59 Intake Total 1160 / 1160 600 / 600 Output Total 1500 / 1500 Balance -340 / -340 600 / 600 Weight 83.8 kg Intake: IV 200 / 200 600 / 600 Ofirmev Inj 1,000 mg In 100 ml 200 / 200 @ 400 mls/hr IV.SIG Q6H PRN Rx# :[id number] Prostaphlin Inj 2 GM In NS Inj 200 / 200 400 / 400 100 ML @ 200 mls/hr IV.SIG Q4H TIM Rx#:[id number] Oral 960 / 960 Output: Urine 1500 / 1500 Other: Date of Last Bowel Movement 11/11/18 # Bowel Movements 1 General: No acute distress Cardiovascular: S1/S2 Rotatory: Clear to auscultation bilaterally Gastroenterology: Soft, nontender, nondistended Musculoskeletal: Right upper extremity swelling down to the elbow. 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 Hand splinted. Results Labs CBC & Chem 7: 11/12/18 07:21 11/12/18 07:21 Labs: Microbiology 11/09/18 20:34 Wound - Wrist Gram Stain - Final 11/09/18 20:34 Wound - Wrist Wound Culture - Final No growth in 72 hours (aerobically and anaerobically ) Assessment and Plan (1) Extensor tenosynovitis of right wrist: Code(s): M65.841 - Other synovitis and tenosynovitis, right hand Status: Acute Plan Patient is a 43-year-old male with past medical history of IV drug abuse presenting with right hand, wrist, forearm swelling concerning for cellulitis versus synovitis/tenosynovitis Infectious disease: Cellulitis versus synovitis/tenosynovitis Orthopedic hand consulted MRI of right wrist - small tendon involvement - Patient Status post incision and drainage on 11/09 - Gram stain: No WBC seen, no organisms seen - Wound culture wrist: no growth - wound culture hand: staph A - Infectious disease evaluation appreciated Surgical pathology: Severe acute fibrinous and chronic synovitis. Blood culture follow-up: No growth to date x 5 Doppler study of hand shows no evidence of DVT antibiotics: Ofloxacin Pain control: Ibuprofen, 0.5 mg Dilaudid every 3 hours, ofirmev 1 g every 6 hours Hand elevation for swelling - PT evaluation -Swelling of elbow is likely secondary from drainage from the hand status post incision and drainage. Patient remains afebrile without white blood cell count. Suspect that the swelling is secondary to soft tissue edema and not abscess formation at this time will hold off on further imaging. Clinically monitor CODE STATUS: Full code DVT prophylaxis: Ambulation/SCDs Disposition: Medical surgical unit Progress Note: Quality VTE Deep Vein Thrombosis/Pulmonary Embolism Present on Admission: No
[2018-11-13] MEDS ORDERED: Ketorolac Inj 30 MG/ML (IVP) Vial IV.PUSH ONE (17:00)
[2018-11-14] MEDS: HYDROmorphone PF Inj 0.5 MG/0.5 ML Syringe IV.PUSH PRN ×4 (00:51→11:39)
[2018-11-14] MEDS: Ibuprofen 600 MG Tablet PO PRN (09:20)
--- NOTE | 2018-11-14 14:16 | P.PNIM ---
Subjective Interval history: Patient seen and evaluated to morning at bedside Patient denies subjective fever Patient does endorse pain and swelling in the right wrist and hand and forearm Pain regimen to be adjusted up with Dilaudid Patient with past history of substance abuse and thus at this moment we will not place a PICC line Orthopedic hand team to follow-up the patient later on this afternoon briefly discussed over the telephone and tentative plan is for 7 days of parenteral IV antibiotics with transition over to oral in conjunction with infectious disease consultation Physical Exam Vital signs: Vital Signs 11/13/18 16:00 11/14/18 00:55 11/14/18 04:00 Temperature 97.9 F 97.8 F 98.3 F Pulse Rate 83 77 79 Respiratory Rate 20 20 18 Blood Pressure 131/78 137/70 124/86 Pulse Oximetry 94 L 97 97 11/14/18 08:00 11/14/18 09:25 11/14/18 10:26 Temperature 97.5 F L Pulse Rate 58 L Respiratory Rate 16 16 16 Blood Pressure 109/84 Pulse Oximetry 96 Intake & Output 11/13/18 11/14/18 11/14/18 18:59 06:59 18:59 Intake Total 900 / 900 780 / 780 200 / 200 Output Total 250 / 250 Balance 650 / 650 780 / 780 200 / 200 Weight 84.8 kg Intake: IV 300 / 300 300 / 300 200 / 200 Prostaphlin Inj 2 GM In NS Inj 300 / 300 300 / 300 200 / 200 100 ML @ 200 mls/hr IV.SIG Q4H TIM Rx#:[id number] Oral 600 / 600 480 / 480 Output: Urine 250 / 250 Other: # Voids 4 3 Date of Last Bowel Movement 11/11/18 11/11/18 # Bowel Movements 0 HEENT: EOMI Cardiovascular: S1/S2 Respiratory: Clear to auscultation anteriorly and posteriorly without wheezing, rales, or rhonchi. Muscle skeletal: Hand is in a splint and elevated. Swelling down to near the elbow. Sensation is intact. Extremity: 2+ radial pulse left upper extremity. No lower extremity edema Results Labs CBC & Chem 7: 11/12/18 07:21 11/12/18 07:21 Assessment and Plan (1) Extensor tenosynovitis of right wrist: Code(s): M65.841 - Other synovitis and tenosynovitis, right hand Status: Acute Plan Patient is a 43-year-old male with past medical history of IV drug abuse presenting with right hand, wrist, forearm swelling concerning for cellulitis versus synovitis/tenosynovitis Infectious disease: Cellulitis versus synovitis/tenosynovitis Orthopedic hand consulted MRI of right wrist - small tendon involvement - Patient Status post incision and drainage on 11/09 - Gram stain: No WBC seen, no organisms seen - Wound culture wrist: no growth - wound culture hand: staph Aureus - Infectious disease evaluation appreciated Surgical pathology: Severe acute fibrinous and chronic synovitis. - Incentive plan at this moment is for patient to have 7 days of IV parenteral antibiotics with transition over to oral regimen for discharge. At this time continue IV antibiotics. Discussed briefly with orthopedic hand team and they will follow-up on 11/14. Blood culture follow-up: No growth to date x 5 Doppler study of hand shows no evidence of DVT antibiotics: Ofloxacin Pain control: Ibuprofen, 1mg Dilaudid every 3 hours, ofirmev 1 g every 6 hours. Increased dose of Dilaudid from 0.5 to 1 mg on 11/14 Hand elevation for swelling - PT evaluation -Swelling of elbow is likely secondary from drainage from the hand status post incision and drainage. Patient remains afebrile without white blood cell count. Suspect that the swelling is secondary to soft tissue edema and not abscess formation at this time will hold off on further imaging. Clinically monitor CODE STATUS: Full code DVT prophylaxis: Ambulation/SCDs Disposition: Medical surgical unit Progress Note: Quality VTE Deep Vein Thrombosis/Pulmonary Embolism Present on Admission: No
[2018-11-14] MEDS: HYDROmorphone PF Inj 1 MG/ML Ampul IV.PUSH PRN ×4 (14:31→23:52)
--- NOTE | 2018-11-14 18:45 | P.PNID ---
Subjective Remarks: co pain, swelling of R hand no fevers MSSA in cultures tolerates abx OK, no nausea, vomiting, diarrhea no rash no fever Antibiotics: oxacuilllin Allergies/Adverse Reactions: Allergies No Known Allergies Allergy (Verified 11/05/18 15:56) Objective Vital Signs 11/14/18 00:55 11/14/18 04:00 11/14/18 08:00 Temperature 97.8 F 98.3 F 97.5 F L Pulse Rate 77 79 58 L Respiratory Rate 20 18 16 Blood Pressure 137/70 124/86 109/84 Pulse Oximetry 97 97 96 11/14/18 09:25 11/14/18 10:26 11/14/18 12:00 Temperature 97.9 F Pulse Rate 87 Respiratory Rate 16 16 18 Blood Pressure 140/80 Pulse Oximetry 97 11/14/18 15:13 11/14/18 16:00 11/14/18 18:03 Temperature 99 F Pulse Rate 84 Respiratory Rate 16 18 16 Blood Pressure 126/75 Pulse Oximetry 95 Intake & Output 11/13/18 11/14/18 11/14/18 18:59 06:59 18:59 Intake Total 900 / 900 780 / 780 1140 / 1140 Output Total 250 / 250 Balance 650 / 650 780 / 780 1140 / 1140 Weight 84.8 kg Intake: IV 300 / 300 300 / 300 300 / 300 Prostaphlin Inj 2 GM In NS Inj 300 / 300 300 / 300 300 / 300 100 ML @ 200 mls/hr IV.SIG Q4H TIM Rx#:[id number] Oral 600 / 600 480 / 480 840 / 840 Output: Urine 250 / 250 Other: # Voids 4 3 5 Date of Last Bowel Movement 11/11/18 11/11/18 # Bowel Movements 0 0 11/09/18 20:34 Wound - Wrist Gram Stain - Final 11/09/18 20:34 Wound - Wrist Wound Culture - Final No growth in 72 hours (aerobically and anaerobically ) 11/09/18 20:34 Wound - Wrist Acid Fast Bacilli Smear - Final No acid fast bacilli seen 11/09/18 20:34 Wound - Wrist Mycobacterial Culture - Pending 11/09/18 20:31 Wound - Hand Acid Fast Bacilli Smear - Final No acid fast bacilli seen 11/09/18 20:31 Wound - Hand Mycobacterial Culture - Pending Imaging: ITS Impressions Hand X-Ray 11/05/18 16:36 CONCLUSION: Chronic changes and no definite fracture for technique. Upper Extremity Ultrasound 11/05/18 16:36 CONCLUSION: 1. Uterus subcutaneous swelling without focal pocket of abscess. Chest X-Ray 11/08/18 00:00 CONCLUSION: No acute cardiopulmonary disease. Hand MRI 11/08/18 00:00 CONCLUSION: 1. Post amputation, otherwise unremarkable. Wrist MRI 11/08/18 00:00 CONCLUSION: 1. No evidence for abscess or osteomyelitis. Physical Exam: GENERAL: NAD SKIN: Warm and dry. EYES: No scleral icterus. No injection or drainage. ENT: No nasal bleeding or discharge. Mucous membranes pink and moist. CARDIOVASCULAR: Regular rate and rhythm. no murmurs RESPIRATORY: No accessory muscle use. Clear to auscultation. GASTROINTESTINAL: Abdomen soft, non-tender, nondistended. MUSCULOSKELETAL: Extremities without clubbing, cyanosis, RUE with dressing in place fingers are mildly swollen, but free of neurovascular defitis No asceding cellulits or lymphangits NEUROLOGICAL: Awake and alert. No obvious cranial nerve deficits. Motor grossly within normal limits. Five out of 5 muscle strength in the arms and legs. Normal speech. PSYCHIATRIC: calm and cooperative Assessment and Plan - Plan Extensor tenosynovitis, right wrist fourth compartment, MSSA romain Manning: sp arthrotomy, no intraarticular purulence was encounted, just extensive tenoosynovitis sp I+D H/o IVDU , pt states he quit mos ago cont oxaciilin while in pt at least 7 days post op (providing steady improvement clinically) Also pt is a poor condidate for o/p IV meds 2/2 IVDU hx Anticipate transition to PO abx upon dc (dicloxacillin ) Luis Rodgers
[2018-11-14] MEDS ORDERED: HYDROmorphone PF Inj 1 MG/ML Ampul IV.PUSH ONE (21:00)
[2018-11-15] MEDS: HYDROmorphone PF Inj 1 MG/ML Ampul IV.PUSH PRN ×7 (02:49→20:59)
[2018-11-15] MEDS ORDERED: Influenza (Quadrivalent) Vaccine 0.5 ML Syringe IM ONE (16:00)
[2018-11-15] MEDS: Melatonin 5 MG Tablet PO PRN (21:16)
--- NOTE | 2018-11-15 23:28 | P.PNIM ---
Subjective Interval history: Follow up for right wrist tenosynovitis. Patient is doing well. No chest pain, SOB fever, chills. However, he complains of persistent pain from right upper ext. Physical Exam Vital signs: Vital Signs 11/14/18 23:50 11/15/18 04:00 11/15/18 08:00 Temperature 98.4 F 98.1 F 97.9 F Pulse Rate 82 80 77 Respiratory Rate 16 18 18 Blood Pressure 135/76 130/81 126/72 Pulse Oximetry 97 99 95 11/15/18 12:00 11/15/18 16:00 11/15/18 20:00 Temperature 98.5 F 98.3 F 98 F Pulse Rate 68 77 69 Respiratory Rate 18 16 17 Blood Pressure 116/62 130/66 104/67 Pulse Oximetry 95 97 95 Intake & Output 11/15/18 11/15/18 11/16/18 06:59 18:59 06:59 Intake Total 978 / 978 900 / 900 200 / 200 Balance 978 / 978 900 / 900 200 / 200 Weight 83.1 kg Intake: IV 300 / 300 300 / 300 200 / 200 Ofirmev Inj 1,000 mg In 100 ml 100 / 100 @ 400 mls/hr IV.SIG Q6H PRN Rx# :[id number] Prostaphlin Inj 2 GM In NS Inj 300 / 300 300 / 300 100 / 100 100 ML @ 200 mls/hr IV.SIG Q4H TIM Rx#:[id number] Oral 678 / 678 600 / 600 Other: # Voids 5 8 Date of Last Bowel Movement 11/11/18 # Bowel Movements 0 Narrative: GENERAL: Alert, NAD. SKIN: Warm and dry. HEAD: Normocephalic. EYES: No scleral icterus. No injection or drainage. NECK: Supple, trachea midline. No JVD or lymphadenopathy. CARDIOVASCULAR: Regular rate and rhythm without murmurs, gallops, or rubs. RESPIRATORY: Breath sounds equal bilaterally. No accessory muscle use. GASTROINTESTINAL: Abdomen soft, non-tender, nondistended. MUSCULOSKELETAL: No cyanosis, or edema. Right upper ext wrapped in dressing around right wrist area. BACK: Nontender without obvious deformity. No CVA tenderness. Results Labs CBC & Chem 7: 11/16/18 06:14 11/16/18 06:14 Assessment and Plan (1) Extensor tenosynovitis of right wrist: Code(s): M65.841 - Other synovitis and tenosynovitis, right hand Status: Acute Plan Patient is a 43-year-old male with past medical history of IV drug abuse presenting with right hand, wrist, forearm swelling concerning for cellulitis versus synovitis/tenosynovitis. Right wrist tenosynovitis -s/p I&D. Hand surgery as well as ID following. -Currently on Oxacillin. Wound culture positive for MSSA -Per ID, patient has received 7 days of IV oxacillin. We can likely d/c on PO Dicloxacillin. -Currently on Acetaminophen and Dilaudid. IVDU Tobacco abuse -Counselled. Continue nicotine patch. Full code. Ambulation. Progress Note: Quality VTE Deep Vein Thrombosis/Pulmonary Embolism Present on Admission: No
[2018-11-16] MEDS: HYDROmorphone PF Inj 1 MG/ML Ampul IV.PUSH PRN ×7 (00:08→21:01)
[2018-11-16 07:20] LABS: Hematocrit 39.5 % (39.0-51.0); Hemoglobin 13.8 gm/dL (13.0-17.0); Mean Corpuscular HGB Conc 34.9 % (32.0-36.0); Mean Corpuscular Hemoglobin 31.6 pg (27.0-34.0); Mean Corpuscular Volume 90.4 fL (80.0-100.0); Mean Platelet Volume 8.1 fL (7.0-11.0); Platelet Count 209 th/mm3 (150-450); Red Blood Count 4.37 mil/mm3 (4.50-5.90); Red Cell Distribution Width 12.9 % (11.6-17.2); White Blood Count 5.2 th/mm3 (4.0-11.0)
[2018-11-16 07:49] LABS: Anion Gap 7 meq/L (5-15); Blood Urea Nitrogen 13 mg/dL (7-18); Calcium 8.4 mg/dL (8.5-10.1); Carbon Dioxide 28.5 meq/L (21.0-32.0); Chloride 105 meq/L (98-107); Glomerular Filtration Rate Greater Than 89 mL/min (>89); Glucose,Random 101 mg/dL (74-106); Potassium 4.4 meq/L (3.5-5.1); Sodium 140 meq/L (136-145)
[2018-11-16] MEDS ORDERED: Acetaminophen 325 MG Tablet PO PRN (18:59)
--- NOTE | 2018-11-16 19:07 | P.PNIM ---
Subjective Interval history: Follow up for right wrist tenosynovitis. Patient is currently doing well. No fever, chills. Complains of inadequate pain control. Physical Exam Vital signs: Vital Signs 11/15/18 20:00 11/16/18 00:00 11/16/18 04:00 Temperature 98 F 97.4 F L 97.2 F L Pulse Rate 69 65 70 Respiratory Rate 17 17 17 Blood Pressure 104/67 117/70 114/65 Pulse Oximetry 95 96 95 11/16/18 08:00 Temperature 97.5 F L Pulse Rate 64 Respiratory Rate 20 Blood Pressure 103/65 Pulse Oximetry 93 L Intake & Output 11/16/18 11/16/18 11/17/18 06:59 18:59 06:59 Intake Total 780 / 780 400 / 400 Balance 780 / 780 400 / 400 Weight 84.2 kg Intake: IV 300 / 300 400 / 400 Ofirmev Inj 1,000 mg In 100 ml 100 / 100 @ 400 mls/hr IV.SIG Q6H PRN Rx# :[id number] Prostaphlin Inj 2 GM In NS Inj 200 / 200 400 / 400 100 ML @ 200 mls/hr IV.SIG Q4H TIM Rx#:[id number] Oral 480 / 480 Other: # Voids 8 Date of Last Bowel Movement 11/11/18 # Bowel Movements 0 Narrative: GENERAL: Alert, NAD. SKIN: Warm and dry. HEAD: Normocephalic. EYES: No scleral icterus. No injection or drainage. NECK: Supple, trachea midline. No JVD or lymphadenopathy. CARDIOVASCULAR: Regular rate and rhythm without murmurs, gallops, or rubs. RESPIRATORY: Breath sounds equal bilaterally. No accessory muscle use. GASTROINTESTINAL: Abdomen soft, non-tender, nondistended. MUSCULOSKELETAL: No cyanosis, or edema. Right upper ext wrapped in dressing around right wrist area. BACK: Nontender without obvious deformity. No CVA tenderness. Results Labs CBC & Chem 7: 11/16/18 06:14 11/16/18 06:14 Labs: Microbiology 11/09/18 20:31 Wound - Hand Acid Fast Bacilli Smear - Final No acid fast bacilli seen 11/09/18 20:31 Wound - Hand Mycobacterial Culture - Preliminary No growth in 1 week 11/09/18 20:34 Wound - Wrist Acid Fast Bacilli Smear - Final No acid fast bacilli seen 11/09/18 20:34 Wound - Wrist Mycobacterial Culture - Preliminary No growth in 1 week 11/09/18 20:31 Wound - Hand Fungal Smear - Final No fungal elements seen 11/09/18 20:31 Wound - Hand Fungal Culture - Preliminary No growth in 1 week 11/09/18 20:34 Wound - Wrist Fungal Smear - Final No fungal elements seen 11/09/18 20:34 Wound - Wrist Fungal Culture - Preliminary No growth in 1 week Assessment and Plan (1) Extensor tenosynovitis of right wrist: Code(s): M65.841 - Other synovitis and tenosynovitis, right hand Status: Acute Plan Patient is a 43-year-old male with past medical history of IV drug abuse presenting with right hand, wrist, forearm swelling concerning for cellulitis versus synovitis/tenosynovitis. Right wrist tenosynovitis -s/p I&D. Hand surgery as well as ID following. -Currently on Oxacillin. Wound culture positive for MSSA -Per ID, patient has received 7 days of IV oxacillin. We can likely d/c on PO Dicloxacillin. -Currently on Acetaminophen and Dilaudid. -D/C IV acetaminophen. We will use Acetaminophen, [place] for pain control. Dilaudid IV for breakthrough. -Discussed with hand surgery. Likely discharge tomorrow on PO Abx. Hand surgery okay for discharge tomorrow. IVDU Tobacco abuse -Counselled. Continue nicotine patch. Full code. Ambulation. Progress Note: Quality VTE Deep Vein Thrombosis/Pulmonary Embolism Present on Admission: No
[2018-11-17] MEDS: HYDROmorphone PF Inj 1 MG/ML Ampul IV.PUSH PRN ×2 (02:03→08:26)
[2018-11-17 09:22] VITALS: BP 103/56; PULSE 64; RESP 16; TEMP 97.9; O2SAT 95
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
== END 2018-11-17 12:33 | disposition home or self-care (01) | DRG 501 ==
LOC: NEPD 15:32 → NEDA 15:32 → NEPFCDU 18:30 → N03 11-07 21:26 → N04 11-11 17:20
PROVIDERS: ADMIT Hospitalist; ATTEND Hospitalist
CPT/HCPCS: 71010; 71045; 73130; 73220; 73223; 76882; 76937; 80048; 80053; 80074; 83605; 83735; 85025; 85027; 85651; 85652; 86140; 86403; 87015; 87040; 87070; 87102; 87116; 87147; 87186; 87205; 87206; 88305; 90658; 90686; 97110; 97166; A9585; J0131; J0690; J1170; J1885; J1956; J2001; J2270; J2543; J2700; J3010; J3370; J7030; J7050; L3825; L3908; Q2038